=== PATIENT | female | born 1960 | race Caucasian/White ===

== ENCOUNTER → 2017-03-14 | Day surgery (SDC) | payer BC ==
--- NOTE | 2017-03-06 10:18 | RADIOLOGY REPORT (SQ) ---
EXAM DESCRIPTION: CHEST PA/LATERAL COMPLETED DATE/TIME: 03/06/2017 10:07 am REASON FOR STUDY: PRE OP COMPARISON: None. EXAM PARAMETERS: NUMBER OF VIEWS: two views TECHNIQUE: Digital Frontal and Lateral radiographic views of the chest acquired. RADIATION DOSE: NA LIMITATIONS: none FINDINGS: LUNGS AND PLEURA: No opacities, masses or pneumothorax. No pleural effusion. MEDIASTINUM AND HILAR STRUCTURES: No masses or contour abnormalities. HEART AND VASCULAR STRUCTURES: Heart normal size. No evidence for failure. BONES: No acute findings. HARDWARE: None in the chest. OTHER: No other significant finding. IMPRESSION: NO SIGNIFICANT RADIOGRAPHIC FINDING IN THE CHEST. TECHNICAL DOCUMENTATION: JOB ID: [id number] [employer]- All Rights Reserved
[2017-03-06 10:38] LABS: ABSOLUTE BASOPHILS # (AUTO) 0.1 10^3/uL (0.0-0.2); ABSOLUTE EOSINOPHILS # (AUTO) 0.3 10^3/uL (0.0-0.6); ABSOLUTE LYMPHOCYTES (AUTO) 2.2 10^3/uL (0.5-4.7); ABSOLUTE MONOCYTES (AUTO) 0.5 10^3/uL (0.1-1.4); ABSOLUTE NEUT (AUTO) 4.7 10^3/uL (1.7-8.2); BASOPHILS % (AUTO) 0.7 % (0-2); EOSINOPHILS % (AUTO) 3.8 % (0-6); HEMATOCRIT 37.7 % (36.0-47.0); HEMOGLOBIN 12.9 g/dL (12.0-15.5); LYMPHOCYTES % (AUTO) 28.1 % (13-45); MEAN CORPUSCULAR HEMOGLOBIN 30.8 pg (27.0-33.4); MEAN CORPUSCULAR HGB CONC 34.2 g/dL (32.0-36.0); MEAN CORPUSCULAR VOLUME 90 fl (80-97); MONOCYTES % (AUTO) 7.1 % (3-13); RED BLOOD COUNT 4.18 10^6/uL (3.72-5.28); RED CELL DISTRIBUTION WIDTH 12.8 % (11.5-14.0); SEGMENTED NEUTROPHILS % (AUTO) 60.3 % (42-78); WHITE BLOOD COUNT 7.8 10^3/uL (4.0-10.5)
[2017-03-06 10:42] LABS: APPEARANCE,URINE CLEAR; BILIRUBIN,URINE NEGATIVE (NEGATIVE); GLUCOSE, URINE NEGATIVE (NEGATIVE); KETONES,URINE NEGATIVE (NEGATIVE); LEUKOCYTE ESTERASE,URINE NEGATIVE (NEGATIVE); NITRITE,URINE NEGATIVE (NEGATIVE); PROTEIN,URINE NEGATIVE (NEGATIVE); URINE SPECIFIC GRAVITY 1.012
[2017-03-06 10:58] LABS: ANION GAP 15 (5-19); BLOOD UREA NITROGEN 11 mg/dL (7-20); CALCIUM 9.7 mg/dL (8.4-10.2); CARBON DIOXIDE 25 mmol/L (22-30); CHLORIDE 100 mmol/L (98-107); CREATININE RESULT 0.52 mg/dL (0.52-1.25); GLUCOSE 147 mg/dL (75-110); POTASSIUM 4.2 mmol/L (3.6-5.0); SODIUM 140.2 mmol/L (137-145)
--- NOTE | 2017-03-06 12:52 | EKG REPORT ---
SEVERITY:- NORMAL ECG - SINUS RHYTHM : Confirmed by: Celia Alvarez MD 06-Mar-2017 12:52:22
[~2017-03-14] MED LIST: CEFAZOLIN SODIUM 2 GM in DEXTROSE 5%-WATER 100 ML IV PRN; LACTATED RINGERS 1000 ML IV PRN; LIDOCAINE 0.5% INJ-PF (5 MG/ML) 50 ML SDV SUBCUT PRN
[2017-03-14 08:52] VITALS: BP 115/66
== END ==
LOC: OROUT 07:57
PROVIDERS: ATTEND Orthopaedic Surgery
DX: Z01.818 Encounter for other preprocedural examination (principal)
CPT/HCPCS: 36415; 71020; 80048; 81001; 82962; 84132; 85025; 93005; 93010; J0690

== ENCOUNTER 2017-04-04 08:09 | Day surgery (SDC) | payer BC ==
[~2017-04-04 08:09] MED LIST changes: +CEFAZOLIN 2 GM/D5W RTU 2 GM/50 ML RTUPB IV PRN; -CEFAZOLIN SODIUM 2 GM in DEXTROSE 5%-WATER 100 ML IV PRN
[2017-04-04] MEDS ORDERED: LIDOCAINE 2% INJ-PF (20 MG/ML) 10 ML AMPUL ONE (08:55)
[2017-04-04] MEDS ORDERED: ONDANSETRON HCL INJ/PF 4 MG/2 ML SDV ONE (08:55)
[2017-04-04] MEDS ORDERED: NEOSTIGMINE METHYLSULFATE 10 MG/10 ML VIAL ONE (08:55)
[2017-04-04] MEDS ORDERED: GLYCOPYRROLATE INJ 0.4 MG/2 ML VIAL ONE (08:55)
[2017-04-04] MEDS ORDERED: SUCCINYLCHOLINE CHLORIDE INJ 200 MG/10 ML VIAL ONE (08:55)
[2017-04-04] MEDS ORDERED: KETOROLAC TROMETHAMINE 60 MG/2 ML SDV ONE (08:55)
[2017-04-04] MEDS ORDERED: DEXAMETHASONE SOD PHOSPHATE INJ 4 MG/1 ML VIAL ONE (08:55)
[2017-04-04] MEDS ORDERED: METOCLOPRAMIDE HCL INJ/PF 10 MG/2 ML SDV ONE (09:34)
[2017-04-04] MEDS ORDERED: FAMOTIDINE INJ/PF 20 MG/2 ML SDV IV ONE (09:34)
[2017-04-04] MEDS ORDERED: MIDAZOLAM 2 MG/2 ML INJ ONE (10:20)
[2017-04-04] MEDS ORDERED: FENTANYL CITRATE INJ/PF 250 MCG/5 ML AMPULE ONE (10:20)
[2017-04-04] MEDS ORDERED: PROPOFOL INJ 200 MG/20 ML VIAL IV ONE (10:21)
[2017-04-04] MEDS ORDERED: ACETAMINOPHEN 100 ML IV ONE (10:21)
[2017-04-04] MEDS ORDERED: PROMETHAZINE HCL INJ 25 MG/1 ML VIAL IV PRN ×2 (11:03)
[2017-04-04] MEDS ORDERED: MORPHINE SULFATE 10 MG/ML INJ IV PRN (11:03)
[2017-04-04] MEDS ORDERED: OXYCODONE-ACETAMINOPHEN 5-325 MG TABLET PO PRN ×2 (11:03)
[2017-04-04] MEDS ORDERED: DIPHENHYDRAMINE HCL 50 MG/ML VIAL IV PRN (11:03)
[2017-04-04] MEDS ORDERED: MEPERIDINE HCL/PF INJ 25 MG/1 ML DISP.SYRIN IV PRN (11:03)
[2017-04-04] MEDS ORDERED: FENTANYL CITRATE INJ/PF 100 MCG/2 ML AMPUL IV PRN ×3 (11:03)
--- NOTE | 2017-04-04 12:37 | Operative Report ---
Operative Report DATE OF SURGERY: 04/04/17 PREOPERATIVE DIAGNOSIS: Right ankle arthrosis OPERATION: Right pantalar arthrodesis SURGEON: JUAN CARLOS NG [facility]ST AC[facility] HOSPITALIST: RONALD LOOMIS COMPLICATIONS: Broken drill ESTIMATED BLOOD LOSS: 100 PROCEDURE: Implants used: [place] 10 x 150 mm pantalar fusion nail With the patient supine position on table the right lower extremities prepped and draped in sterile fashion. Limb was elevated for exsanguination tourniquet inflated to 280 torr. A longitudinal incision made over the distal fibula. Distal fibular osteotomies performed in the distal fibula was excised. The underlying tibiotalar joint is examined. Using a TPS saw the articular surface of both the talus and the distal tibia are removed to reveal underlying cancellus bone in a fashion such that it is a parallel cut and it restores the foot to a plantigrade position both in terms of valgus varus as well as in terms of dorsiflexion and plantar flexion. Next a pin is placed through the plantar surface of the foot through the calcaneus the talus and up into the tibia. Flexible reamers used to increase the size of the opening to 11 mm. Subsequently a 10 x 150 mm [place] titanium pantalar fusion nail was advanced over the guide christine to appropriate depth. Interlock is placed in the talus followed by 2 interlocks more proximally in the tibia. A compression was then performed across the tibiotalar joint. A lateral calcaneal screw was now placed uneventfully. Lastly and attempts to place a posterior to anterior calcaneus screw through the nail initially seemed to go well but post replacement fluoroscopy suggested that the interlock was not through the nail. This screw was removed and it is an attempt is now made to redrill the opening but during the process of redrilling this the drill breaks. At this point it is my clinical judgment that to retrieve a broken drill with cause much more damage than leaving the broken drill bit in place and incision is made to do the latter. The tourniquet was deflated. Hemostasis obtained. Wounds irrigated with normal saline. The closure was interrupted Vicryl followed by surya. A sterile compressive dressing posterior plaster splint were applied and the patient's return to the PACU in satisfactory
[2017-04-04] MEDS: FENTANYL CITRATE INJ/PF 100 MCG/2 ML AMPUL ONE ×2 (12:45→12:50)
[2017-04-04] MEDS: HYDROMORPHONE HCL INJ/PF 2 MG/ML AMPULE ONE ×2 (12:55→13:16)
[2017-04-04] MEDS ORDERED: IBUPROFEN INJ 800 MG/8 ML VIAL IV ONE (13:00)
[2017-04-04] MEDS ORDERED: LORAZEPAM INJ 2 MG/1 ML VIAL ONE (13:22)
[2017-04-04] MEDS ORDERED: ONDANSETRON 4 MG TAB.RAPDIS PO PRN (14:39)
[2017-04-04] MEDS: OXYCODONE HCL IR 5 MG TABLET PO PRN ×2 (14:49→21:08)
--- NOTE | 2017-04-04 16:07 | RADIOLOGY REPORT (SQ) ---
EXAM DESCRIPTION: NO CHG FLUORO; ANKLE RIGHT COMPLETE COMPLETED DATE/TIME: 04/04/2017 3:27 pm REASON FOR STUDY: RT ANKLE FUSION ASSISTED WITH FLUORO IN OR M19.079 PRIMARY OSTEOARTHRITIS, UNSPEC IFIED ANKLE AND FOOT COMPARISON: None. FLUOROSCOPY TIME: 1.0 minutes 9 images saved to PACS. TECHNIQUE: Intra-operative images acquired during surgical procedure to evaluate progress. NUMBER OF IMAGES: 9 LIMITATIONS: None. FINDINGS: Intramedullary christine distal tibia with locking screws, distal tip of christine overlying hindfoot. Osteotomy distal fibula. IMPRESSION: IMAGE(S) OBTAINED DURING PROCEDURE. COMMENT: Quality ID [id number]: Final reports for procedures using fluoroscopy that document radiation exp osure indices, or exposure time and number of fluorographic images (if radiation exposure indices are not available) Please consult full operative report of the attending physician for description of the procedure. TECHNICAL DOCUMENTATION: JOB ID: [id number] [employer]- All Rights Reserved
[2017-04-04] MEDS: LORAZEPAM INJ 2 MG/1 ML VIAL IV PRN ×2 (16:08→22:24)
[2017-04-04] MEDS ORDERED: (PENDING PHARMACY ID) (Metformin Hcl [Glucophage Xr 500 Mg Tablet] 500 MG) PO SCH (18:00)
[2017-04-04] MEDS: METFORMIN HCL 500 MG TABLET PO SCH (18:57)
[2017-04-04] MEDS ORDERED: INSULIN GLARGINE,HUM.REC.ANLOG 300 UNIT/3 ML INSULN.PEN SUBCUT SCH (22:00)
[2017-04-04] MEDS ORDERED: ATORVASTATIN CALCIUM 20 MG TABLET PO SCH (22:00)
[2017-04-04] MEDS ORDERED: OXYCODONE HCL SR 10 MG TABLET PO SCH (22:00)
[2017-04-05] MEDS: OXYCODONE HCL IR 5 MG TABLET PO PRN (03:45)
--- NOTE | 2017-04-05 06:36 | PDOC DISCHARGE SUMMARY ---
General - Admit/Disc Date/PCP Admission Date/Primary Care Provider: DELMIS ISBELL MD Discharge Date: 04/05/17 - Discharge Diagnosis (1) Arthritis of right ankle Is this a current diagnosis for this admission?: Yes - Additional Information Discharge Diet: As Tolerated, Regular Discharge Activity: Balance Activity w/Rest, No Driving, No tub bath Home Medications: Atorvastatin Calcium [Lipitor 20 mg Tablet] 20 mg PO QHS 04/04/17 Chlorothiazide [Chlorothiazide 500 mg Tablet] 500 mg PO DAILY 04/04/17 Ezetimibe [Zetia 10 mg Tablet] 10 mg PO DAILY 04/04/17 Insulin Glargine,Hum.rec.anlog [Lantus Solostar] 25 units SQ QHS 04/04/17 Levothyroxine Sodium [Synthroid 0.075 mg Tablet] 0.075 mg PO [id number] 04/04/17 Lisinopril [Prinivil] 20 mg PO DAILY 04/04/17 Metformin HCl [Glucophage XR 500 mg Tablet] 500 mg PO BID 04/04/17 Paroxetine HCl [Paroxetine ER] 50 mg PO DAILY 04/04/17 History of Present Illness History of Present Illness: FLACO JARA is a 57 year old female with progressive right ankle pain and functional disability. She is admitted for an elective right ankle arthrodesis. Hospital Course Hospital Course: Patient was taken to the operating room and undergoes uncomplicated right ankle arthrodesis. She is returned to the floor on a 23 hour outpatient observation basis for pain control. Pain is controlled with oral analgesics. She makes limited progress with physical therapy. She subsequently for discharge home on a touchdown weightbearing restriction on the right lower extremity. Physical Exam Vital Signs: Temp Pulse Resp BP Pulse Ox 36.8 C 98 14 127/68 H 94 04/05/17 00:00 04/05/17 00:00 04/05/17 00:00 04/05/17 00:00 04/05/17 00:00 Intake & Output 04/03/17 04/04/17 04/05/17 06:59 06:59 06:59 Intake Total 1970 Output Total 1939 Balance 30 Weight 84 kg 83.91 kg General appearance: PRESENT: mild distress Head exam: PRESENT: normocephalic Eye exam: PRESENT: EOMI Respiratory exam: PRESENT: unlabored Cardiovascular exam: PRESENT: RRR Pulses: PRESENT: +1 pedal pulses bilateral Vascular exam: PRESENT: normal capillary refill GI/Abdominal exam: PRESENT: soft Rectal exam: PRESENT: deferred Extremities exam: PRESENT: other - Right lower extremities immobilized in a posterior splint. Distal neurovascular examination is intact. Neurological exam: PRESENT: alert, awake, oriented to person, oriented to place , oriented to time, oriented to situation. ABSENT: motor sensory deficit Psychiatric exam: PRESENT: appropriate affect, normal mood. ABSENT: homicidal ideation, suicidal ideation Skin exam: PRESENT: dry, intact, warm. ABSENT: cyanosis, rash Results Laboratory Results: 04/04/17 08:24 04/04/17 08:24 Potassium 3.5 L Impressions: Ankle X-Ray 04/04/17 00:00 IMPRESSION: IMAGE(S) OBTAINED DURING PROCEDURE. Fluoroscopy 04/04/17 00:00 IMPRESSION: IMAGE(S) OBTAINED DURING PROCEDURE. Status: Imported from PACS Plan Discharge Plan: Patient to be discharged home with home health nursing, home health physical therapy, wheeled walker, bedside commode. Follow-up will be with Dr. Torrez and [facility] for surgery in 2 weeks for staple removal.
[2017-04-05] MEDS: LORAZEPAM INJ 2 MG/1 ML VIAL IV PRN (07:48)
[2017-04-05] MEDS: METFORMIN HCL 500 MG TABLET PO SCH (07:48)
[2017-04-05 07:59] VITALS: BP 152/78
[2017-04-05] MEDS ORDERED: LEVOTHYROXINE SODIUM 0.075 MG TABLET PO SCH (08:00)
[2017-04-05] MEDS ORDERED: PAROXETINE HCL 25 MG TAB.SR.24H PO SCH (10:00)
[2017-04-05] MEDS ORDERED: CHLOROTHIAZIDE 500 MG PO SCH (10:00)
[2017-04-05] MEDS ORDERED: EZETIMIBE 10 MG TABLET PO SCH (10:00)
[2017-04-05] MEDS ORDERED: LISINOPRIL 10 MG TABLET PO SCH (10:00)
[2017-04-05] MEDS ORDERED: (PENDING PHARMACY ID) (Lisinopril [Prinivil] 20 MG) PO SCH (10:00)
== END 2017-04-05 09:20 | disposition home health service (06) ==
LOC: OROUT 08:09 → 4S 08:09 → INOR 12:49 → OROUT 04-05 09:20
PROVIDERS: ATTEND Orthopaedic Surgery
PROC: 0SGF0ZZ (ICD-10-PCS; principal; 2017-04-04 10:15)
DX: M19.071 Primary osteoarthritis, right ankle and foot (principal); E11.9 Type 2 diabetes mellitus without complications; E07.9 Disorder of thyroid, unspecified; Z79.899 Other long term (current) drug therapy; Z79.4 Long term (current) use of insulin; Z79.84 Long term (current) use of oral hypoglycemic drugs; Z87.891 Personal history of nicotine dependence
CPT/HCPCS: 36415; 82962; 84132; 73610; 97163; 28705; C1713; J2250; J1100; J1885; J3010 ×2; J1815; J2765; J1170; J2060 ×2; J0330; J2405; J2704; S0028; J3490; J0690; J0131; J1741; 01480

== ENCOUNTER → 2018-04-05 | Outpatient (CLI) | payer BC ==
--- NOTE | 2018-04-05 13:44 | RADIOLOGY REPORT (SQ) ---
EXAM DESCRIPTION: CT ABD/PELVIS WITH IV ONLY COMPLETED DATE/TIME: 04/05/2018 1:10 pm REASON FOR STUDY: N95.0 POSTMENOPAUSAL BLEEDING N95.0 POSTMENOPAUSAL BLEEDING COMPARISON: 11/10/2015 TECHNIQUE: CT scan of the abdomen and pelvis performed using helical scanning technique with dynamic intravenous contrast injection. No oral contrast. Images reviewed with lung, soft tissue, and bone windows. Reconstructed coronal and sagittal MPR images reviewed. Delayed images for evaluation of the urinary system also acquired. All images stored on PACS. All CT scanners at this facility use dose modulation, iterative reconstruction, and/or weight based d osing when appropriate to reduce radiation dose to as low as reasonably achievable (ALARA). [facility]: Dose Right [facility]: CareDose [facility]: Dose Right [facility]: Teradose 4D [facility]: Bi02 Medical CONTRAST TYPE AND DOSE: contrast/concentration: Isovue 350.00 mg/ml; Total Contrast Delivered: 91.0 ml; Total Saline Delivered: 70.0 ml RENAL FUNCTION: Creatinine 0.5 RADIATION DOSE: CT Rad equipment meets quality standard of care and radiation dose reduction techniq ues were employed. CTDIvol: 11.9 - 13.6 mGy. DLP: 1362 mGy-cm.. LIMITATIONS: None. FINDINGS: LOWER CHEST: No significant findings. No nodules or infiltrates. LIVER: Steatosis. No solid mass. SPLEEN: Normal size. No focal lesions. PANCREAS: No masses. No significant calcifications. No adjacent inflammation or peripancreatic fluid collections. Pancreatic duct not dilated. GALLBLADDER: Surgically absent. ADRENAL GLANDS: No significant masses or asymmetry. RIGHT KIDNEY AND URETER: No solid masses. No significant calcifications. No hydronephrosis or hyd roureter. LEFT KIDNEY AND URETER: No solid masses. No significant calcifications. No hydronephrosis or hydr oureter. AORTA AND VESSELS: No aneurysm. No dissection. Renal arteries, SMA, celiac without stenosis. RETROPERITONEUM: 1.2 cm aortocaval node, stable. No bulky adenopathy. BOWEL AND PERITONEAL CAVITY: Diverticulosis. No masses or inflammatory changes. No free fluid or per itoneal masses. APPENDIX: Normal. PELVIS: No mass. No free fluid. Normal bladder. ABDOMINAL WALL: No masses. No hernias. BONES: Prior lower lumbar fusion. OTHER: No other significant finding. IMPRESSION: No acute findings. Sigmoid diverticulosis without evidence of diverticulitis. TECHNICAL DOCUMENTATION: JOB ID: [id number] Quality ID # [id number]: Final reports with documentation of one or more dose reduction techniques (e.g., Au tomated exposure control, adjustment of the mA and/or kV according to patient size, use of iterative reconstruction technique) 2010 [employer]- All Rights Reserved Reading location - IP/workstation name: [email or web address]
== END ==
LOC: RAD 12:55
PROVIDERS: ATTEND Obstetrics & Gynecology
DX: N95.0 Postmenopausal bleeding (principal)
CPT/HCPCS: 74177; 82565

== ENCOUNTER 2018-10-05 06:02 | Inpatient (IN) | payer BC ==
[2018-10-05] MEDS ORDERED: PROPOFOL 1,000 MG/100 ML INFUS..BTL IV ONE ×2 (06:13→19:45)
[2018-10-05] MEDS ORDERED: TRANEXAMIC ACID INJ/PF 1,000 MG/10 ML SDV IV ONE ×2 (06:14→06:20)
[2018-10-05] MEDS ORDERED: NORMAL SALINE 1000 ML 1,000 ML IV ONE ×2 (06:15→10:48)
[2018-10-05] MEDS: PROPOFOL 1,000 MG/100 ML INFUS..BTL IV PRN ×3 (06:17→20:00)
[2018-10-05] MEDS ORDERED: MIDAZOLAM 2 MG/2 ML INJ IM ONE (06:21)
[2018-10-05] MEDS ORDERED: MIDAZOLAM 2 MG/2 ML INJ ONE (06:22)
[2018-10-05] MEDS ORDERED: NORMAL SALINE 250 ML IV PRN (06:27)
[2018-10-05 06:46] LABS: HEMATOCRIT 44.8 % (36.0-47.0); MEAN CORPUSCULAR HGB CONC 33.5 g/dL (32.0-36.0); MEAN CORPUSCULAR VOLUME 99 fl (80-97); PLATELET COUNT 275 10^3/uL (150-450); RED BLOOD COUNT 4.55 10^6/uL (3.72-5.28); RED CELL DISTRIBUTION WIDTH 14.1 % (11.5-14.0)
[2018-10-05] MEDS ORDERED: FENTANYL CITRATE INJ/PF 100 MCG/2 ML AMPUL IV ONE ×2 (06:48→07:57)
[2018-10-05] MEDS ORDERED: FENTANYL CITRATE INJ/PF 100 MCG/2 ML AMPUL ONE (06:48)
--- NOTE | 2018-10-05 06:50 | RADIOLOGY REPORT (SQ) ---
EXAM DESCRIPTION: X-ray single view chest. CLINICAL HISTORY: 58 years Female, Post intubation COMPARISON: None. TECHNIQUE: Single portable view of the chest performed on 10/05/2018 at 6:22 AM FINDINGS: The lungs are well expanded. There is moderate diffuse bilateral airspace disease worse in the right lung. The lateral costophrenic sulci are grossly clear. There is no evidence of a pneumothorax. The cardiac silhouette is normal in size and configuration. The mediastinal contours are normal. No acute osseous abnormality is identified. No focal soft tissue abnormalities are seen. Lines and tubes: An endotracheal tube is present which terminates at the level of the clavicular heads. IMPRESSION: 1. Moderate diffuse bilateral airspace disease slightly greater in the right lung. Possible etiologies include pulmonary edema, ARDS, alveolar hemorrhage or multifocal bilateral pneumonia. 2. Endotracheal tube terminates at the level of the clavicular heads.
[2018-10-05 06:53] LABS: ALANINE AMINOTRANSFERASE 47 U/L (9-52); ALBUMIN 4.9 g/dL (3.5-5.0); ALKALINE PHOSPHATASE 260 U/L (38-126); ASPARTATE AMINO TRANSFERASE 102 U/L (14-36); BILIRUBIN,DIRECT 0.9 mg/dL (0.0-0.4); BILIRUBIN,TOTAL 2.3 mg/dL (0.2-1.3); BLOOD UREA NITROGEN 6 mg/dL (7-20); CALCIUM 9.7 mg/dL (8.4-10.2); CREATINE KINASE 70 U/L (30-135); GLUCOSE 241 mg/dL (75-110); POTASSIUM 3.4 mmol/L (3.6-5.0)
[2018-10-05 06:58] LABS: FIBRINOGEN 500 mg/dL (209-497); INTERNATIONAL RATION (INR) 1.17; PARTIAL THROMBOPLASTIN TIME 28.8 SEC (23.5-35.8); PROTHROMBIN TIME 15.5 SEC (11.4-15.4)
[2018-10-05 06:59] LABS: CARBON DIOXIDE 24 mmol/L (22-30); CHLORIDE 98 mmol/L (98-107); SODIUM 144.7 mmol/L (137-145)
[2018-10-05] MEDS ORDERED: MIDAZOLAM 2 MG/2 ML INJ IV ONE (06:59)
[2018-10-05 07:02] LABS: ANION GAP 23 (5-19)
[2018-10-05 07:04] LABS: ABSOLUTE LYMPHOCYTES# (MANUAL) 11.2 10^3/uL (0.5-4.7); ABSOLUTE MONOCYTES # (MANUAL) 1.3 10^3/uL (0.1-1.4); BASOPHILS % (MANUAL) 0 % (0-2); EOSINOPHILS % (MANUAL) 2 % (0-6); LYMPHOCYTES % (MANUAL) 51 % (13-45); MONOCYTES % (MANUAL) 6 % (3-13); PLATELET COMMENT ADEQUATE; RBC MORPHOLOGY COMMENT NORMO-CYTIC/CHROMIC; SEGMENTED NEUTROPHILS % (MAN) 41 % (42-78); TOTAL CELLS COUNTED 100
[2018-10-05] MEDS ORDERED: KETAMINE HCL INJ 500 MG/10 ML VIAL ONE (07:18)
[2018-10-05] MEDS ORDERED: KETAMINE HCL INJ 500 MG/10 ML VIAL IV ONE ×2 (07:18→09:42)
--- NOTE | 2018-10-05 08:24 | EKG REPORT ---
SEVERITY:- ABNORMAL ECG - SINUS TACHYCARDIA QT PROLONGATION : Confirmed by: Pato Crabtree MD 05-Oct-2018 08:23:26
[2018-10-05 09:00] LABS: ABSOLUTE LYMPHOCYTES (AUTO) 1.1 10^3/uL (0.5-4.7); ABSOLUTE MONOCYTES (AUTO) 1.9 10^3/uL (0.1-1.4); ABSOLUTE NEUT (AUTO) 15.2 10^3/uL (1.7-8.2); BASOPHILS % (AUTO) 0.2 % (0-2); EOSINOPHILS % (AUTO) 0.3 % (0-6); HEMATOCRIT 39.6 % (36.0-47.0); HEMOGLOBIN 13.3 g/dL (12.0-15.5); LYMPHOCYTES % (AUTO) 5.8 % (13-45); MEAN CORPUSCULAR HEMOGLOBIN 32.6 pg (27.0-33.4); MEAN CORPUSCULAR HGB CONC 33.5 g/dL (32.0-36.0); MEAN CORPUSCULAR VOLUME 97 fl (80-97); MONOCYTES % (AUTO) 10.2 % (3-13); PLATELET COUNT 253 10^3/uL (150-450); RED BLOOD COUNT 4.08 10^6/uL (3.72-5.28); RED CELL DISTRIBUTION WIDTH 13.6 % (11.5-14.0); SEGMENTED NEUTROPHILS % (AUTO) 83.5 % (42-78); TOTAL CELLS COUNTED % (AUTO) 100 %; WHITE BLOOD COUNT 18.2 10^3/uL (4.0-10.5)
[2018-10-05] MEDS: FENTANYL CITRATE INJ/PF 100 MCG/2 ML AMPUL IV PRN ×6 (09:30→20:12)
[2018-10-05] MEDS ORDERED: METHYLPREDNISOLONE INJ 125 MG/2 ML SDV IV ONE ×2 (09:39→19:00)
--- NOTE | 2018-10-05 10:25 | RADIOLOGY REPORT (SQ) ---
EXAM DESCRIPTION: CHEST SINGLE VIEW COMPLETED DATE/TIME: 10/05/2018 10:13 am REASON FOR STUDY: Hypoxic after bucking the tube. COMPARISON: Earlier the same day NUMBER OF VIEWS: One view. TECHNIQUE: Single frontal radiographic image of the chest acquired. LIMITATIONS: None. FINDINGS: LUNGS AND PLEURA: Diffuse bilateral airspace disease not significantly changed. No pneumo thorax. MEDIASTINUM AND HEART: Stable heart size and mediastinal structures. SUPPORT DEVICES: Endotracheal tube tip between thoracic inlet and michael. BONY STRUCTURES: No acute findings. HARDWARE: None. OTHER: No other significant finding. IMPRESSION: STABLE APPEARANCE OF THE CHEST. SUPPORT DEVICES UNCHANGED. Reading location - IP/workstation name: [email or web address]
[2018-10-05 10:57] LABS: APPEARANCE,URINE CLEAR; BILIRUBIN,URINE NEGATIVE (NEGATIVE); COLOR,URINE YELLOW; GLUCOSE, URINE >=500 mg/dL (NEGATIVE); KETONES,URINE TRACE mg/dL (NEGATIVE); LEUKOCYTE ESTERASE,URINE NEGATIVE (NEGATIVE); NITRITE,URINE NEGATIVE (NEGATIVE); PROTEIN,URINE 30 mg/dL (NEGATIVE); URINE SPECIFIC GRAVITY 1.008; UROBILINOGEN,URINE NEGATIVE mg/dL (<2.0)
[2018-10-05] MEDS ORDERED: ONDANSETRON HCL INJ/PF 4 MG/2 ML SDV IV PRN (12:00)
[2018-10-05] MEDS ORDERED: HYDRALAZINE HCL INJ/PF 20 MG/1 ML SDV IV PRN (12:14)
[2018-10-05] MEDS ORDERED: DEXTROSE 50%-WATER 25 GM/50 ML DISP.SYRIN IV PRN ×2 (12:16)
[2018-10-05] MEDS ORDERED: DEXTROSE 40% GEL 15 GM TUBE PO PRN ×2 (12:16)
[2018-10-05] MEDS ORDERED: GLUCAGON,HUMAN RECOMB 1 MG INJ IM PRN (12:16)
[2018-10-05] MEDS: LORAZEPAM INJ 2 MG/1 ML VIAL IV PRN ×2 (13:45→16:23)
[2018-10-05] MEDS: INSULIN REG, HUMAN 100 UNIT/ML 3 ML VIAL (PYX) SUBCUT SCH ×2 (13:46→17:53)
[2018-10-05] MEDS ORDERED: MIDAZOLAM 2 MG/2 ML INJ IV PRN (14:39)
[2018-10-05] MEDS ORDERED: MIDAZOLAM HCL 50 MG/100 ML RTUINJ ONE (15:09)
[2018-10-05] MEDS: MIDAZOLAM HCL 50 MG/100 ML RTUINJ IV PRN ×2 (15:10→20:15)
--- NOTE | 2018-10-05 16:16 | PDOC H&P ---
History of Present Illness Admission Date/PCP: 10/05/18 12:05 DIXIE BERRY MD Patient complains of: respiratory distress History of Present Illness: FLACO JARA is a 58 year old female with history of depression, HTN, and alcohol abuse, who presents to the ED with lip and tongue swelling in addition to difficulty breathing. History was obtained from patient's (ex?) who brought her to the ED. Pre report, he saw her yesterday evening and was in good health. He received a call around 2AM this morning and noted that she was having trouble talking due to facial swelling which started a few hours ago. He went over to her house to check up on. Patient initially refused to come to the ED and took Benadryl. Around 6AM, patient's breathing became much worse and she was brought to the ED, where she rapidly deteriorated on arrival. Due to distress and turning blue, she was intubated nasotracheally with a 6.0 endotracheal tube. Per ED physician, she went into an asystolic arrest with no pulse. Chest compressions were started and NET was placed. It was noted that she had dark bloody discharge on suction. ROSC was acheived Propofol drip was started to sedate her. Of note, patient noted similar facial swelling and difficultly breathing 2-3 months ago. She took Benadryl, with improvement. She never reported this episode to her PCP. She was Lisinopril at that times and has continued to take lisinopril. At time of my evaluation in the ED, patient was clinically better. She required less sedation and was answering some commands. Admitted to hospitalist service to the MICU. Past Medical History Cardiac Medical History: Reports: Hypertension Denies: Coronary Artery Disease, Myocardial Infarction Pulmonary Medical History: Reports: Bronchitis Denies: Asthma, Chronic Obstructive Pulmonary Disease (COPD), Pneumonia Neurological Medical History: Denies: Seizures Endocrine Medical History: Reports: Diabetes Mellitus Type 1, Diabetes Mellitus Type 2 Musculoskeltal Medical History: Reports: Arthritis - R FOOT Psychiatric Medical History: Reports: Alcohol Dependency, Depression Hematology: Reports: Anemia - TEENAGER Past Surgical History Past Surgical History: Reports: Cholecystectomy, Orthopedic Surgery - right foot for cerebral palsy, low back spinal fusion Social History Information Source: Relative - Lives with: Alone Smoking Status: Former Smoker Frequency of Alcohol Use: Heavy Hx Recreational Drug Use: No Drugs: None Hx Prescription Drug Abuse: No Family History Family History: Reviewed & Not Pertinent Parental Family History Reviewed: No Children Family History Reviewed: NA Sibling(s) Family History Reviewed.: NA Medication/Allergy Home Medications: Atorvastatin Calcium [Lipitor 20 mg Tablet] 20 mg PO QHS 10/05/18 Dextroamphetamine/Amphetamine [Adderall XR 20 mg Capsule] 20 mg PO DAILY 10/05/18 Insulin Glargine,Hum.rec.anlog [Lantus Insulin 100 Unit/mL] 35 units SQ DAILY 10/05/18 Levothyroxine Sodium 75 mcg PO Q6AM 10/05/18 Lisinopril [Zestril] 20 mg PO DAILY 10/05/18 Paroxetine HCl [Paxil Cr 25 mg Tab.sr] 50 mg PO DAILY 10/05/18 Allergies/Adverse Reactions: lisinopril Adverse Reaction (Severe, Verified 10/05/18 08:37) Angioneurotic Edema Hair Dye Allergy (Uncoded 03/14/17 08:37) Review of Systems ROS unobtainable: Due to endotracheal tube - ROS per spouse who was with patient Physical Exam Vital Signs: Temp Pulse Resp BP Pulse Ox 98.8 F 95 23 H 128/102 H 100 10/05/18 14:29 10/05/18 14:41 10/05/18 14:29 10/05/18 14:29 10/05/18 15:14 Intake & Output 10/04/18 10/05/18 10/06/18 06:59 06:59 06:59 Intake Total 6 2811 Output Total 800 Balance 6 2010 Weight 91 kg 86.5 kg General appearance: PRESENT: mild distress - due to nasoendotracheal tube and restraints, well-developed, well-nourished Mouth exam: PRESENT: dry mucosa, other - Mild bleeding noted from naso-ET tube Respiratory exam: PRESENT: rhonchi, unlabored Cardiovascular exam: PRESENT: +S1, +S2. ABSENT: tachycardia GI/Abdominal exam: PRESENT: organolmegaly - RUQ fullness noted, soft. ABSENT: tenderness Extremities exam: PRESENT: other - Left toe ulcer noted on bottom, non draining Neurological exam: PRESENT: awake, other - Unable to do full neuro exam due to sedation Psychiatric exam: PRESENT: anxious Skin exam: PRESENT: dry, intact, other - LE chronic venous stasis noted bilaterally Results Laboratory Results: 10/05/18 08:35 10/05/18 06:10 10/05/18 10/05/18 10/05/18 06:10 06:10 06:10 WBC 22.0 H RBC 4.55 Hgb 15.0 Hct 44.8 MCV 99 H MCH 33.0 MCHC 33.5 RDW 14.1 H Plt Count 275 Seg Neutrophils % Not Reportable Lymphocytes % Not Reportable Monocytes % Not Reportable Eosinophils % Not Reportable Basophils % Not Reportable Absolute Neutrophils Not Reportable Absolute Lymphocytes Not Reportable Absolute Monocytes Not Reportable Absolute Eosinophils Not Reportable Absolute Basophils Not Reportable Sodium 144.7 Potassium 3.4 L Chloride 98 Carbon Dioxide 24 Anion Gap 23 H BUN 6 L Creatinine 0.56 Est GFR ( Amer) > 60 Est GFR (Non-Af Amer) > 60 Glucose 241 H Lactic Acid Calcium 9.7 Total Bilirubin 2.3 H AST 102 H ALT 47 Alkaline Phosphatase 260 H Total Protein 9.0 H Albumin 4.9 Urine Color Urine Appearance Urine pH Ur Specific [place] Urine Protein Urine Glucose (UA) Urine Ketones Urine Blood Urine Nitrite Ur Leukocyte Esterase Urine WBC (Auto) Urine RBC (Auto) Blood Type O POSITIVE 10/05/18 10/05/18 10/05/18 06:30 08:35 10:20 WBC 18.2 H RBC 4.08 Hgb 13.3 Hct 39.6 MCV 97 MCH 32.6 MCHC 33.5 RDW 13.6 Plt Count 253 Seg Neutrophils % 83.5 H Lymphocytes % 5.8 L Monocytes % 10.2 Eosinophils % 0.3 Basophils % 0.2 Absolute Neutrophils 15.2 H Absolute Lymphocytes 1.1 Absolute Monocytes 1.9 H Absolute Eosinophils 0.0 Absolute Basophils 0.0 Sodium Potassium Chloride Carbon Dioxide Anion Gap BUN Creatinine Est GFR ( Amer) Est GFR (Non-Af Amer) Glucose Lactic Acid 10.5 H Calcium Total Bilirubin AST ALT Alkaline Phosphatase Total Protein Albumin Urine Color YELLOW Urine Appearance CLEAR Urine pH 7.0 Ur Specific [place] 1.008 Urine Protein 30 H Urine Glucose (UA) >=500 H Urine Ketones TRACE H Urine Blood SMALL H Urine Nitrite NEGATIVE Ur Leukocyte Esterase NEGATIVE Urine WBC (Auto) 3 Urine RBC (Auto) 3 Blood Type 10/05/18 11:00 WBC RBC Hgb Hct MCV MCH MCHC RDW Plt Count Seg Neutrophils % Lymphocytes % Monocytes % Eosinophils % Basophils % Absolute Neutrophils Absolute Lymphocytes Absolute Monocytes Absolute Eosinophils Absolute Basophils Sodium Potassium Chloride Carbon Dioxide Anion Gap BUN Creatinine Est GFR ( Amer) Est GFR (Non-Af Amer) Glucose Lactic Acid 1.6 Calcium Total Bilirubin AST ALT Alkaline Phosphatase Total Protein Albumin Urine Color Urine Appearance Urine pH Ur Specific [place] Urine Protein Urine Glucose (UA) Urine Ketones Urine Blood Urine Nitrite Ur Leukocyte Esterase Urine WBC (Auto) Urine RBC (Auto) Blood Type 10/05/18 10/05/18 06:10 06:10 Creatine Kinase 70 Troponin I 0.057 Impressions: Chest X-Ray 10/05/18 09:51 IMPRESSION: STABLE APPEARANCE OF THE CHEST. SUPPORT DEVICES UNCHANGED. 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 This is 2nd episode in 3 months. - Given severe distress, required nasoendotracheal intubation - TXA was given in ED after blood was noted. There is some evidence that TXA helps with severe respiratory distress/PAH in setting of angioedema - IV benadryl provided Management - Admit to MICU - Vent support for now - Versed GTT ordered - Fentanyl ordered PRN - Supportive care - IV benadryl ordered PRN - LAURA should NOT be used. Listed as allergy - ARBs should be used cautiously (2) Acute respiratory failure with hypoxia Is this a current diagnosis for this admission?: Yes Plan: Management per above - Dr. Townsend consulted, appreciate management recommendations - Respiratory following as well (3) LFT elevation Is this a current diagnosis for this admission?: Yes Plan: AST to ALT ratio 2:1, in setting of history of heavy alcohol use. Enlarged liver noted on exam - Will continue to monitor for now (4) Alcohol abuse Is this a current diagnosis for this admission?: Yes Plan: Has long standing history of alcohol use - Ordered IV ativan PRN in setting of w/d symptoms (5) Diabetes Qualifiers: Diabetes mellitus type: type 2 Diabetes mellitus usp insulin use: with usp use Is this a current diagnosis for this admission?: Yes Plan: At home is on Lantus 35U qHS - Given NPO status, will only start Lantus 10U qHS - Started LDISS with CBS checks q6 hours (6) Pulmonary alveolar hemorrhage Is this a current diagnosis for this admission?: Yes Plan: Concern for PAH given blood noted with suction - Unclear etiology, patient did receive chest compression, was hypertensive, and had respiratory distress which could all contribute - Received TXA and IV steroids in ED - Will closely monitor CBC (recheck today at 4pm and then again in AM) (7) Leukocytosis Is this a current diagnosis for this admission?: Yes Plan: LIkely from stress reaction however possibly PNA given opacities noted in CXR - WBC trending down on recheck in ED - Will NOT empirically start abx at this point; low threshold if febrile, worsening respiratory status - Time Time Spent: Greater than 70 Minutes Critical Time spent with patient: 15-24 minutes Medications reviewed and adjusted accordingly: Yes - Inpatient Certification Medical Necessity: Need Close Monitoring Due to Risk of Patient Decompensation, Risk of Complication if Not Cared For in Hospital
[2018-10-05] MEDS ORDERED: EPINEPHRINE INJ 1 MG/10 ML DISP.SYRIN ONE (16:18)
[2018-10-05 18:34] LABS: ABSOLUTE LYMPHOCYTES (AUTO) 0.6 10^3/uL (0.5-4.7); ABSOLUTE MONOCYTES (AUTO) 0.4 10^3/uL (0.1-1.4); ABSOLUTE NEUT (AUTO) 8.9 10^3/uL (1.7-8.2); BASOPHILS % (AUTO) 0.1 % (0-2); HEMATOCRIT 34.2 % (36.0-47.0); HEMOGLOBIN 11.7 g/dL (12.0-15.5); MEAN CORPUSCULAR HEMOGLOBIN 32.8 pg (27.0-33.4); MEAN CORPUSCULAR HGB CONC 34.2 g/dL (32.0-36.0); MEAN CORPUSCULAR VOLUME 96 fl (80-97); MONOCYTES % (AUTO) 3.9 % (3-13); PLATELET COUNT 163 10^3/uL (150-450); RED BLOOD COUNT 3.57 10^6/uL (3.72-5.28); RED CELL DISTRIBUTION WIDTH 13.7 % (11.5-14.0); TOTAL CELLS COUNTED % (AUTO) 100 %; WHITE BLOOD COUNT 9.9 10^3/uL (4.0-10.5)
[2018-10-05] MEDS ORDERED: POTASSI CL 20 MEQ/1/2NS 1L 20 MEQ/1,000 ML RTUINJ IV ONE (19:46)
[2018-10-05] MEDS: POTASSI CL 20 MEQ/1/2NS 1L 1000 ML IV PRN (20:06)
[2018-10-05 20:43] LABS: ARTERIAL BLOOD BASE EXCESS 2.3 mmol/L; ARTERIAL BLOOD H2CO3 1.31 mmol/L (1.05-1.35); ARTERIAL BLOOD HCO3 27.3 mmol/L (20-24); ARTERIAL BLOOD O2 SATURATION 98.2 % (94-98); ARTERIAL BLOOD PCO2 43.5 mmHg (35-45); ARTERIAL BLOOD PH 7.42 (7.35-7.45); ARTERIAL BLOOD PO2 114.2 mmHg (80-100); ARTERIAL BLOOD TOTAL CO2 28.6 mmol/L (21-25)
[2018-10-05 20:52] LABS: ARTERIAL BLOOD FIO2 50%
[2018-10-05] MEDS ORDERED: INSULIN GLARGINE,HUM.REC.ANLOG 300 UNIT/3 ML INSULN.PEN SUBCUT SCH (22:00)
[2018-10-05] MEDS: DIPHENHYDRAMINE HCL 50 MG/ML VIAL IV PRN (22:18)
[2018-10-06 00:02] LABS: HEMATOCRIT 34.4 % (36.0-47.0); HEMOGLOBIN 11.7 g/dL (12.0-15.5); MEAN CORPUSCULAR HEMOGLOBIN 32.8 pg (27.0-33.4); MEAN CORPUSCULAR VOLUME 96 fl (80-97); PLATELET COUNT 151 10^3/uL (150-450); RED BLOOD COUNT 3.57 10^6/uL (3.72-5.28); RED CELL DISTRIBUTION WIDTH 14.1 % (11.5-14.0); WHITE BLOOD COUNT 8.8 10^3/uL (4.0-10.5)
[2018-10-06] MEDS: METHYLPREDNISOLONE INJ 125 MG/2 ML SDV IV SCH ×5 (00:24→23:16)
[2018-10-06] MEDS: INSULIN REG, HUMAN 100 UNIT/ML 3 ML VIAL (PYX) SUBCUT SCH ×5 (00:24→23:16)
[2018-10-06] MEDS: FENTANYL CITRATE INJ/PF 100 MCG/2 ML AMPUL IV PRN ×9 (00:33→21:07)
[2018-10-06 04:13] LABS: ABSOLUTE LYMPHOCYTES (AUTO) 0.6 10^3/uL (0.5-4.7); ABSOLUTE MONOCYTES (AUTO) 0.4 10^3/uL (0.1-1.4); ABSOLUTE NEUT (AUTO) 8.9 10^3/uL (1.7-8.2); BASOPHILS % (AUTO) 0.1 % (0-2); HEMATOCRIT 33.6 % (36.0-47.0); HEMOGLOBIN 11.5 g/dL (12.0-15.5); LYMPHOCYTES % (AUTO) 6.3 % (13-45); MEAN CORPUSCULAR HEMOGLOBIN 32.6 pg (27.0-33.4); MEAN CORPUSCULAR HGB CONC 34.1 g/dL (32.0-36.0); MEAN CORPUSCULAR VOLUME 96 fl (80-97); MONOCYTES % (AUTO) 4.2 % (3-13); PLATELET COUNT 165 10^3/uL (150-450); RED BLOOD COUNT 3.51 10^6/uL (3.72-5.28); RED CELL DISTRIBUTION WIDTH 13.6 % (11.5-14.0); SEGMENTED NEUTROPHILS % (AUTO) 89.4 % (42-78); TOTAL CELLS COUNTED % (AUTO) 100 %
[2018-10-06] MEDS: DIPHENHYDRAMINE HCL 50 MG/ML VIAL IV PRN ×4 (04:19→23:16)
[2018-10-06] MEDS: POTASSI CL 20 MEQ/1/2NS 1L 1000 ML IV PRN ×3 (04:19→21:07)
[2018-10-06 04:21] LABS: INTERNATIONAL RATION (INR) 1.23; PROTHROMBIN TIME 16.1 SEC (11.4-15.4)
[2018-10-06 04:22] LABS: ARTERIAL BLOOD BASE EXCESS 0.3 mmol/L; ARTERIAL BLOOD H2CO3 1.13 mmol/L (1.05-1.35); ARTERIAL BLOOD HCO3 24.4 mmol/L (20-24); ARTERIAL BLOOD O2 SATURATION 96.4 % (94-98); ARTERIAL BLOOD PCO2 37.5 mmHg (35-45); ARTERIAL BLOOD PH 7.43 (7.35-7.45); ARTERIAL BLOOD PO2 82.3 mmHg (80-100); ARTERIAL BLOOD TOTAL CO2 25.5 mmol/L (21-25)
[2018-10-06 04:24] LABS: ALANINE AMINOTRANSFERASE 39 U/L (9-52); ALBUMIN 3.4 g/dL (3.5-5.0); ALKALINE PHOSPHATASE 153 U/L (38-126); ANION GAP 12 (5-19); ASPARTATE AMINO TRANSFERASE 95 U/L (14-36); BILIRUBIN,DIRECT 0.7 mg/dL (0.0-0.4); BILIRUBIN,TOTAL 1.2 mg/dL (0.2-1.3); BLOOD UREA NITROGEN 12 mg/dL (7-20); CALCIUM 8.2 mg/dL (8.4-10.2); CARBON DIOXIDE 25 mmol/L (22-30); CHLORIDE 107 mmol/L (98-107); CREATINE KINASE 755 U/L (30-135); GLUCOSE 281 mg/dL (75-110); POTASSIUM 3.7 mmol/L (3.6-5.0); SODIUM 143.9 mmol/L (137-145); TOTAL PROTEIN 6.6 g/dL (6.3-8.2)
[2018-10-06 04:25] LABS: ARTERIAL BLOOD FIO2 40%
[2018-10-06 04:35] LABS: CREATINE KINASE MB 11.3 ng/mL (<4.55)
[2018-10-06 04:37] LABS: TROPONIN I 0.172 ng/mL
[2018-10-06] MEDS: PROPOFOL 1,000 MG/100 ML INFUS..BTL IV PRN ×2 (05:26→17:56)
[2018-10-06] MEDS: LORAZEPAM INJ 2 MG/1 ML VIAL IV PRN (06:54)
[2018-10-06] MEDS: MIDAZOLAM HCL 50 MG/100 ML RTUINJ IV PRN ×2 (06:54→17:56)
--- NOTE | 2018-10-06 08:55 | RADIOLOGY REPORT (SQ) ---
EXAM DESCRIPTION: CHEST SINGLE VIEW COMPLETED DATE/TIME: 10/06/2018 6:43 am REASON FOR STUDY: r/o DA COMPARISON: 10/05/2018 NUMBER OF VIEWS: One view. TECHNIQUE: Single frontal radiographic image of the chest acquired. LIMITATIONS: None. FINDINGS: LUNGS AND PLEURA: Bilateral airspace disease with improved aeration in the left lung. No pneumothorax. MEDIASTINUM AND HEART: Stable heart size and mediastinal structures. SUPPORT DEVICES: Appropriate location without change. BONY STRUCTURES: No acute findings. HARDWARE: None. OTHER: No other significant finding. IMPRESSION: Interval improvement. No pneumothorax. Reading location - IP/workstation name: [email or web address]
[2018-10-06] MEDS: PANTOPRAZOLE SODIUM 40 MG VIAL IV SCH (10:23)
[2018-10-06] MEDS: ENOXAPARIN SODIUM INJ 40 MG/0.4 ML DISP.SYRIN SUBCUT SCH ×2 (10:23→17:37)
--- NOTE | 2018-10-06 14:57 | PDOC PROGRESS REPORT ---
Subjective Progress Note for:: 10/06/18 Subjective:: Admitted on 10/05 to the MICU for severe respiratory distress due to angioedema. Overnight was placed back on Propofol in addition to Versed due to pain and anxiety. Propofol dose lowered due to soft BPs. This AM patient's mental status is improved. Her swelling is decreased. Able to open and close mouth, stick tongue. She is more awake and interactive. Complaining of pain and wanted to drink something. NO other complaints. Reason For Visit: ANGIOEDEMA, RESPIRATORY DISTRESS Physical Exam Vital Signs: Temp Pulse Resp BP Pulse Ox 99.1 F 95 22 H 127/74 H 96 10/06/18 12:00 10/06/18 14:00 10/06/18 14:00 10/06/18 14:00 10/06/18 14:00 Intake & Output 10/05/18 10/06/18 10/07/18 06:59 06:59 06:59 Intake Total 6 4061 1080 Output Total 1600 155 Balance 6 2461 925 Weight 91 kg 83.6 kg General appearance: PRESENT: mild distress - Due to discomfort from nasoendotracheal tube Eye exam: PRESENT: EOMI Mouth exam: PRESENT: tongue midline, other - Lips and tongue much less swollen compared to 10/05 Neck exam: PRESENT: other - Swelling presents but reduced Respiratory exam: PRESENT: rhonchi, unlabored, other - On Vent. ABSENT: wheezes Cardiovascular exam: PRESENT: +S1, +S2. ABSENT: tachycardia GI/Abdominal exam: PRESENT: soft. ABSENT: tenderness Extremities exam: PRESENT: +1 edema Neurological exam: PRESENT: alert, awake, CN II-XII grossly intact Psychiatric exam: PRESENT: agitated - due to tube, anxious Skin exam: PRESENT: dry, intact Results Laboratory Results: 10/06/18 03:49 10/06/18 03:49 10/05/18 10/05/18 10/05/18 18:20 20:29 23:56 WBC 9.9 8.8 RBC 3.57 L 3.57 L Hgb 11.7 L 11.7 L Hct 34.2 L 34.4 L MCV 96 96 MCH 32.8 32.8 MCHC 34.2 34.0 RDW 13.7 14.1 H Plt Count 163 151 Seg Neutrophils % 90.0 H Lymphocytes % 6.0 L Monocytes % 3.9 Eosinophils % 0.0 Basophils % 0.1 Absolute Neutrophils 8.9 H Absolute Lymphocytes 0.6 Absolute Monocytes 0.4 Absolute Eosinophils 0.0 Absolute Basophils 0.0 Carbonic Acid 1.31 HCO3/H2CO3 Ratio 20:1 ABG pH 7.42 ABG pCO2 43.5 ABG pO2 114.2 H ABG HCO3 27.3 H ABG O2 Saturation 98.2 H ABG Base Excess 2.3 FiO2 50% Sodium Potassium Chloride Carbon Dioxide Anion Gap BUN Creatinine Est GFR ( Amer) Est GFR (Non-Af Amer) Glucose Calcium Magnesium Total Bilirubin AST ALT Alkaline Phosphatase Total Protein Albumin 10/06/18 10/06/18 10/06/18 03:49 03:49 04:00 WBC 10.0 RBC 3.51 L Hgb 11.5 L Hct 33.6 L MCV 96 MCH 32.6 MCHC 34.1 RDW 13.6 Plt Count 165 Seg Neutrophils % 89.4 H Lymphocytes % 6.3 L Monocytes % 4.2 Eosinophils % 0.0 Basophils % 0.1 Absolute Neutrophils 8.9 H Absolute Lymphocytes 0.6 Absolute Monocytes 0.4 Absolute Eosinophils 0.0 Absolute Basophils 0.0 Carbonic Acid 1.13 HCO3/H2CO3 Ratio 21:1 ABG pH 7.43 ABG pCO2 37.5 ABG pO2 82.3 ABG HCO3 24.4 H ABG O2 Saturation 96.4 ABG Base Excess 0.3 FiO2 40% Sodium 143.9 Potassium 3.7 Chloride 107 Carbon Dioxide 25 Anion Gap 12 BUN 12 Creatinine 0.45 L Est GFR ( Amer) > 60 Est GFR (Non-Af Amer) > 60 Glucose 281 H Calcium 8.2 L Magnesium 1.7 Total Bilirubin 1.2 AST 95 H ALT 39 Alkaline Phosphatase 153 H Total Protein 6.6 Albumin 3.4 L 10/05/18 10/05/18 10/06/18 06:10 06:10 03:49 Creatine Kinase 70 755 H CK-MB (CK-2) Troponin I 0.057 NT-Pro-B Natriuret Pep 10/06/18 03:49 Creatine Kinase CK-MB (CK-2) 11.30 H Troponin I 0.172 NT-Pro-B Natriuret Pep 2210 H Impressions: Chest X-Ray 10/06/18 06:00 IMPRESSION: Interval improvement. No pneumothorax. 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 This is 2nd episode in 3 months. - In ED: Given severe distress, required nasoendotracheal intubation. TXA was given in ED after blood was noted. IV benadryl provided Management - Admit to MICU - Continue vent support for one additional day despite improvement - Versed and Propofol GTT ordered; would keep on lowest settings while minimizing discomfort and anxiety - Supportive care - IV benadryl ordered PRN - LAURA should NOT be used in future. Listed as allergy. ARBs should be used cautiously (2) Acute respiratory failure with hypoxia Is this a current diagnosis for this admission?: Yes Plan: Management per above - Dr. Townsend aware of patient and saw this AM; continued recs appreciated - Respiratory following as well (3) LFT elevation Is this a current diagnosis for this admission?: Yes Plan: AST to ALT ratio 2:1, in setting of history of heavy alcohol use. Enlarged liver noted on exam - LFTs downtrending on 10/05; continue to monitor (4) Alcohol abuse Is this a current diagnosis for this admission?: Yes Plan: Has long standing history of alcohol use - Has IV ativan PRN in setting of w/d symptoms (5) Diabetes Qualifiers: Diabetes mellitus type: type 2 Diabetes mellitus ocean transportation intermediary insulin use: with ocean transportation intermediary use Is this a current diagnosis for this admission?: Yes Plan: At home is on Lantus 35U qHS - Continue NPO status - Blood sugars are elevated since admission likely due to high doses of steroids, will increase Lantus from 10U to 20U qHS - Continue LDISS with CBS checks q6 hours (6) Pulmonary alveolar hemorrhage Is this a current diagnosis for this admission?: Yes Plan: Concern for PAH given blood noted with suction. May also be from chest co mpression, was hypertensive, and had respiratory distress which could all contribute - Received TXA and IV steroids in ED - H&H have stablized and there is no evidence of active bleeding at this time - Continue IV methylprednisolone 125mg q6 hours (7) Leukocytosis Is this a current diagnosis for this admission?: Yes Plan: LIkely from stress reaction however possibly PNA given opacities noted in CXR - WBC continues to trending down; patient afebrile - No abx at this point; low threshold if febrile, worsening respiratory status - Time Time Spent with patient: 15-24 minutes Medications reviewed and adjusted accordingly: Yes Disposition: Continue ICU care, likely for 1 additional day
--- NOTE | 2018-10-06 16:30 | PDOC CONSULTATION ---
Consultation Consult Date: 10/06/18 Attending physician:: DICK SHIELDS Consult reason:: Acute respiratory failure History of Present Illness Admission Date/PCP: 10/05/18 12:05 DIXIE BERRY MD History of Present Illness: FLACO JARA is a 58 year old female, with her normal state of health until about 2 hours prior to presentation she developed facial swelling as well as swelling and shortness of breath apparently she had a episodes several weeks ago . She self medicated with Benadryl and apparentlyHowever patient noticed swelling shortness of breath and this time and the Benadryl failed to abort the episode she subsequently became progressively more short of breath by the time she arrived to the emergency room she was nasotracheally intubated and is currently in ICU intubated sedated but awake initial episode resolved. . Past Medical History Cardiac Medical History: Reports: Hypertension Denies: Coronary Artery Disease, Myocardial Infarction Pulmonary Medical History: Reports: Bronchitis Denies: Asthma, Chronic Obstructive Pulmonary Disease (COPD), Pneumonia Neurological Medical History: Denies: Seizures Endocrine Medical History: Reports: Diabetes Mellitus Type 1, Diabetes Mellitus Type 2 Musculoskeltal Medical History: Reports: Arthritis - R FOOT Psychiatric Medical History: Reports: Alcohol Dependency, Depression Hematology: Reports: Anemia - TEENAGER Past Surgical History Past Surgical History: Reports: Cholecystectomy, Orthopedic Surgery - right foot for cerebral palsy, low back spinal fusion Social History Information Source: [facility] Records Lives with: Alone Smoking Status: Former Smoker Passive smoke exposure as: Both Frequency of Alcohol Use: Heavy Hx Recreational Drug Use: No Drugs: None Hx Prescription Drug Abuse: No Family History Parental Family History Reviewed: No Children Family History Reviewed: No Sibling(s) Family History Reviewed.: No Medication/Allergy Home Medications: Atorvastatin Calcium [Lipitor 20 mg Tablet] 20 mg PO QHS 10/05/18 Dextroamphetamine/Amphetamine [Adderall XR 20 mg Capsule] 20 mg PO DAILY 10/05/18 Insulin Glargine,Hum.rec.anlog [Lantus Insulin 100 Unit/mL] 35 units SQ DAILY 10/05/18 Levothyroxine Sodium 75 mcg PO Q6AM 10/05/18 Lisinopril [Zestril] 20 mg PO DAILY 10/05/18 Paroxetine HCl [Paxil Cr 25 mg Tab.sr] 50 mg PO DAILY 10/05/18 Allergies/Adverse Reactions: lisinopril Adverse Reaction (Severe, Verified 10/05/18 08:37) Angioneurotic Edema Hair Dye Allergy (Uncoded 03/14/17 08:37) Review of Systems ROS unobtainable: Due to endotracheal tube Physical Exam Vital Signs: Temp Pulse Resp BP Pulse Ox 99.1 F 95 22 H 127/74 H 96 10/06/18 12:00 10/06/18 14:00 10/06/18 14:00 10/06/18 14:00 10/06/18 15:36 Intake & Output 10/05/18 10/06/18 10/07/18 06:59 06:59 06:59 Intake Total 6 4061 1080 Output Total 1600 155 Balance 6 2461 925 Weight 91 kg 83.6 kg General appearance: PRESENT: no acute distress, cooperative, well-developed, well-nourished Head exam: PRESENT: atraumatic, normocephalic Eye exam: PRESENT: EOMI. ABSENT: nystagmus, periorbital swelling Mouth exam: PRESENT: dry mucosa, neck supple, tongue midline, other - Nasotracheal intubated Neck exam: ABSENT: carotid bruit, full ROM, JVD, lymphadenopathy, meningismus, tenderness, thyromegaly, tracheal deviation, tracheostomy, other Respiratory exam: PRESENT: decreased breath sounds, prolonged expiratory phas, rales, retraction, rhonchi, stridor, symmetrical, unlabored Cardiovascular exam: PRESENT: RRR, +S1, +S2 Pulses: PRESENT: normal radial pulses GI/Abdominal exam: PRESENT: soft. ABSENT: tenderness Gentrourinary exam: PRESENT: indwelling catheter Extremities exam: PRESENT: clubbing. ABSENT: calf tenderness, joint swelling Musculoskeletal exam: PRESENT: deformity, dislocation Neurological exam: PRESENT: alert, awake Psychiatric exam: PRESENT: appropriate affect Skin exam: PRESENT: dry, warm Results Laboratory Results: 10/06/18 03:49 10/06/18 03:49 10/05/18 10/05/18 10/05/18 18:20 20:29 23:56 WBC 9.9 8.8 RBC 3.57 L 3.57 L Hgb 11.7 L 11.7 L Hct 34.2 L 34.4 L MCV 96 96 MCH 32.8 32.8 MCHC 34.2 34.0 RDW 13.7 14.1 H Plt Count 163 151 Seg Neutrophils % 90.0 H Lymphocytes % 6.0 L Monocytes % 3.9 Eosinophils % 0.0 Basophils % 0.1 Absolute Neutrophils 8.9 H Absolute Lymphocytes 0.6 Absolute Monocytes 0.4 Absolute Eosinophils 0.0 Absolute Basophils 0.0 Carbonic Acid 1.31 HCO3/H2CO3 Ratio 20:1 ABG pH 7.42 ABG pCO2 43.5 ABG pO2 114.2 H ABG HCO3 27.3 H ABG O2 Saturation 98.2 H ABG Base Excess 2.3 FiO2 50% Sodium Potassium Chloride Carbon Dioxide Anion Gap BUN Creatinine Est GFR ( Amer) Est GFR (Non-Af Amer) Glucose Calcium Magnesium Total Bilirubin AST ALT Alkaline Phosphatase Total Protein Albumin 10/06/18 10/06/18 10/06/18 03:49 03:49 04:00 WBC 10.0 RBC 3.51 L Hgb 11.5 L Hct 33.6 L MCV 96 MCH 32.6 MCHC 34.1 RDW 13.6 Plt Count 165 Seg Neutrophils % 89.4 H Lymphocytes % 6.3 L Monocytes % 4.2 Eosinophils % 0.0 Basophils % 0.1 Absolute Neutrophils 8.9 H Absolute Lymphocytes 0.6 Absolute Monocytes 0.4 Absolute Eosinophils 0.0 Absolute Basophils 0.0 Carbonic Acid 1.13 HCO3/H2CO3 Ratio 21:1 ABG pH 7.43 ABG pCO2 37.5 ABG pO2 82.3 ABG HCO3 24.4 H ABG O2 Saturation 96.4 ABG Base Excess 0.3 FiO2 40% Sodium 143.9 Potassium 3.7 Chloride 107 Carbon Dioxide 25 Anion Gap 12 BUN 12 Creatinine 0.45 L Est GFR ( Amer) > 60 Est GFR (Non-Af Amer) > 60 Glucose 281 H Calcium 8.2 L Magnesium 1.7 Total Bilirubin 1.2 AST 95 H ALT 39 Alkaline Phosphatase 153 H Total Protein 6.6 Albumin 3.4 L 10/05/18 10/05/18 10/06/18 06:10 06:10 03:49 Creatine Kinase 70 755 H CK-MB (CK-2) Troponin I 0.057 NT-Pro-B Natriuret Pep 10/06/18 03:49 Creatine Kinase CK-MB (CK-2) 11.30 H Troponin I 0.172 NT-Pro-B Natriuret Pep 2210 H Impressions: Chest X-Ray 10/06/18 06:00 IMPRESSION: Interval improvement. No pneumothorax. Assessment & Plan - Diagnosis (1) Acute respiratory failure with hypoxia Is this a current diagnosis for this admission?: Yes Plan: Continue current mechanical ventilation (2) Alcohol abuse Is this a current diagnosis for this admission?: Yes Plan: DT precautions (3) Angioedema due to angiotensin converting enzyme inhibitor (LAURA-I) Is this a current diagnosis for this admission?: Yes Plan: H1 blockers plus H2 blockers plus steroids (4) Pulmonary alveolar hemorrhage Is this a current diagnosis for this admission?: Yes Plan: Improved with steroid treatment - Time Total Critical Time (Minutes): 50
[2018-10-06] MEDS ORDERED: MEROPENEM 1 GM VIAL ONE (20:49)
[2018-10-06] MEDS ORDERED: MEROPENEM 1 GM VIAL IV PRN (21:07)
[2018-10-06] MEDS: MEROPENEM 1 GM in NORMAL SALINE 50 ML IV SCH (21:09)
[2018-10-06] MEDS ORDERED: INSULIN GLARGINE,HUM.REC.ANLOG 300 UNIT/3 ML INSULN.PEN SUBCUT SCH (22:00)
[2018-10-07] MEDS: FENTANYL CITRATE INJ/PF 100 MCG/2 ML AMPUL IV PRN ×2 (00:33→05:44)
[2018-10-07] MEDS: PROPOFOL 1,000 MG/100 ML INFUS..BTL IV PRN ×2 (00:34→05:25)
[2018-10-07] MEDS: MIDAZOLAM HCL 50 MG/100 ML RTUINJ IV PRN (00:34)
[2018-10-07 04:23] LABS: ABSOLUTE LYMPHOCYTES (AUTO) 0.6 10^3/uL (0.5-4.7); ABSOLUTE MONOCYTES (AUTO) 0.5 10^3/uL (0.1-1.4); ABSOLUTE NEUT (AUTO) 7.7 10^3/uL (1.7-8.2); BASOPHILS % (AUTO) 0.1 % (0-2); HEMOGLOBIN 10.9 g/dL (12.0-15.5); LYMPHOCYTES % (AUTO) 6.7 % (13-45); MEAN CORPUSCULAR HEMOGLOBIN 33.1 pg (27.0-33.4); MEAN CORPUSCULAR VOLUME 97 fl (80-97); MONOCYTES % (AUTO) 5.2 % (3-13); PLATELET COUNT 155 10^3/uL (150-450); RED BLOOD COUNT 3.28 10^6/uL (3.72-5.28); TOTAL CELLS COUNTED % (AUTO) 100 %; WHITE BLOOD COUNT 8.8 10^3/uL (4.0-10.5)
[2018-10-07 04:45] LABS: ALANINE AMINOTRANSFERASE 30 U/L (9-52); ALBUMIN 3.2 g/dL (3.5-5.0); ALKALINE PHOSPHATASE 131 U/L (38-126); ANION GAP 7 (5-19); ASPARTATE AMINO TRANSFERASE 58 U/L (14-36); BILIRUBIN,DIRECT 0.7 mg/dL (0.0-0.4); BILIRUBIN,TOTAL 0.9 mg/dL (0.2-1.3); BLOOD UREA NITROGEN 17 mg/dL (7-20); CALCIUM 8.3 mg/dL (8.4-10.2); CARBON DIOXIDE 25 mmol/L (22-30); CHLORIDE 109 mmol/L (98-107); CREATINE KINASE 128 U/L (30-135); GLUCOSE 283 mg/dL (75-110); POTASSIUM 4.2 mmol/L (3.6-5.0); SODIUM 141.4 mmol/L (137-145); TOTAL PROTEIN 6.2 g/dL (6.3-8.2)
[2018-10-07] MEDS: METHYLPREDNISOLONE INJ 125 MG/2 ML SDV IV SCH ×4 (05:43→23:45)
[2018-10-07] MEDS: INSULIN REG, HUMAN 100 UNIT/ML 3 ML VIAL (PYX) SUBCUT SCH ×4 (05:44→23:43)
[2018-10-07] MEDS: DIPHENHYDRAMINE HCL 50 MG/ML VIAL IV PRN (05:44)
[2018-10-07] MEDS: POTASSI CL 20 MEQ/1/2NS 1L 1000 ML IV PRN (05:50)
[2018-10-07] MEDS ORDERED: MEROPENEM 1 GM VIAL ONE (06:00)
[2018-10-07] MEDS: MEROPENEM 1 GM in NORMAL SALINE 50 ML IV SCH ×3 (06:03→21:12)
[2018-10-07 06:11] LABS: ARTERIAL BLOOD BASE EXCESS -0.1 mmol/L; ARTERIAL BLOOD H2CO3 1.16 mmol/L (1.05-1.35); ARTERIAL BLOOD HCO3 24.2 mmol/L (20-24); ARTERIAL BLOOD O2 SATURATION 93.6 % (94-98); ARTERIAL BLOOD PCO2 38.5 mmHg (35-45); ARTERIAL BLOOD PH 7.42 (7.35-7.45); ARTERIAL BLOOD PO2 66.6 mmHg (80-100); ARTERIAL BLOOD TOTAL CO2 25.4 mmol/L (21-25)
[2018-10-07 06:12] LABS: ARTERIAL BLOOD FIO2 40%
[2018-10-07] MEDS ORDERED: NORMAL SALINE 1000 ML 1,000 ML IV PRN (08:31)
--- NOTE | 2018-10-07 08:40 | RADIOLOGY REPORT (SQ) ---
EXAM DESCRIPTION: CHEST SINGLE VIEW COMPLETED DATE/TIME: 10/07/2018 7:09 am REASON FOR STUDY: resp failure COMPARISON: 10/06/2018 EXAM PARAMETERS: NUMBER OF VIEWS: One view. TECHNIQUE: Single frontal radiographic view of the chest acquired. RADIATION DOSE: NA LIMITATIONS: None. FINDINGS: LUNGS AND PLEURA: Bilateral airspace disease in the lungs, more so in the right lung with some progression since the prior study. Elevation of the right hemidiaphragm, unchanged finding. V yamil small right pleural effusion. No pneumothorax. MEDIASTINUM AND HILAR STRUCTURES: No masses. Contour normal. HEART AND VASCULAR STRUCTURES: Heart normal in size. Normal vasculature. BONES: No acute findings. HARDWARE: Endotracheal tube again identified. OTHER: No other significant finding. IMPRESSION: 1. Bilateral airspace disease, more so in the right lung, with interval progression sin ce the prior study dated 10/06/2018. Correlation suggested. TECHNICAL DOCUMENTATION: JOB ID: [id number]- All Rights Reserved Reading location - IP/workstation name: [email or web address]
--- NOTE | 2018-10-07 08:43 | PDOC PROGRESS REPORT ---
Subjective Progress Note for:: 10/07/18 Subjective:: Admitted on 10/05 to the MICU for severe respiratory distress due to angioedema. Overnight was placed back on Propofol in addition to Versed due to pain and anxiety. Propofol dose lowered due to soft BPs. This AM patient's mental status is improved. Her swelling is decreased. Able to open and close mouth, stick tongue. She is more awake and interactive. Complaining of pain and wanted to drink something. NO other complaints. 10/07/2018 no acute events in the last 24 hours. Patient is having a low-grade fever of 99.5. Presently on IV fluids half-normal saline at 125 cc/h. Versed was turned off this morning she is on propofol the nurses are trying to wean her off today. Patient is responding to the verbal commands by squeezing the hand. Looks restless may be because returning down the rate of sedation. Reason For Visit: ANGIOEDEMA, RESPIRATORY DISTRESS Physical Exam Vital Signs: Temp Pulse Resp BP Pulse Ox 99.5 F 71 20 124/78 94 10/06/18 16:00 10/06/18 22:00 10/07/18 06:00 10/07/18 05:50 10/07/18 06:00 Intake & Output 10/06/18 10/07/18 10/08/18 06:59 06:59 06:59 Intake Total 4061 3566 Output Total 1600 685 Balance 2461 2881 Weight 83.6 kg 87.3 kg General appearance: PRESENT: mild distress, other - Still intubated but is awake ,in the process of turning of the sedation. Head exam: PRESENT: atraumatic Neck exam: ABSENT: carotid bruit, JVD, lymphadenopathy, thyromegaly Respiratory exam: PRESENT: decreased breath sounds Cardiovascular exam: PRESENT: tachycardia GI/Abdominal exam: PRESENT: normal bowel sounds, soft. ABSENT: distended, guarding, mass, organolmegaly, rebound, tenderness Neurological exam: PRESENT: alert, awake, other - Still on ventilator. Psychiatric exam: PRESENT: agitated Results Laboratory Results: 10/07/18 04:02 10/07/18 04:02 10/07/18 10/07/18 10/07/18 04:02 04:02 06:00 WBC 8.8 RBC 3.28 L Hgb 10.9 L Hct 32.0 L MCV 97 MCH 33.1 MCHC 34.0 RDW 14.0 Plt Count 155 Seg Neutrophils % 88.0 H Lymphocytes % 6.7 L Monocytes % 5.2 Eosinophils % 0.0 Basophils % 0.1 Absolute Neutrophils 7.7 Absolute Lymphocytes 0.6 Absolute Monocytes 0.5 Absolute Eosinophils 0.0 Absolute Basophils 0.0 Carbonic Acid 1.16 HCO3/H2CO3 Ratio 20:1 ABG pH 7.42 ABG pCO2 38.5 ABG pO2 66.6 L ABG HCO3 24.2 H ABG O2 Saturation 93.6 L ABG Base Excess -0.1 FiO2 40% Sodium 141.4 Potassium 4.2 Chloride 109 H Carbon Dioxide 25 Anion Gap 7 BUN 17 Creatinine 0.46 L Est GFR ( Amer) > 60 Est GFR (Non-Af Amer) > 60 Glucose 283 H Calcium 8.3 L Magnesium 1.9 Total Bilirubin 0.9 AST 58 H ALT 30 Alkaline Phosphatase 131 H Total Protein 6.2 L Albumin 3.2 L 10/05/18 10/05/18 10/06/18 06:10 06:10 03:49 Creatine Kinase 70 755 H CK-MB (CK-2) Troponin I 0.057 NT-Pro-B Natriuret Pep 10/06/18 10/06/18 10/07/18 03:49 16:20 04:02 Creatine Kinase 128 CK-MB (CK-2) 11.30 H Troponin I 0.172 0.091 NT-Pro-B Natriuret Pep 2210 H Assessment & Plan - Diagnosis (1) 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 This is 2nd episode in 3 months. - In ED: Given severe distress, required nasoendotracheal intubation. TXA was given in ED after blood was noted. IV benadryl provided Management - Admit to MICU - Continue vent support for one additional day despite improvement - Versed and Propofol GTT ordered; would keep on lowest settings while minimizing discomfort and anxiety - Supportive care - IV benadryl ordered PRN - LAURA should NOT be used in future. Listed as allergy. ARBs should be used cautiously 10/07/2018 patient came to the emergency room with facial swelling difficulty breathing. Status post intubation. Plan is to wean her off the ventilator from today. Off the Versed drip but she is presently on propofol drip. Plan is to follow the weaning protocol today. (2) Acute respiratory failure with hypoxia Is this a current diagnosis for this admission?: Yes Plan: Most likely etiology. This is 2nd episode in 3 months. - In ED: Given severe distress, required nasoendotracheal intubation. TXA was given in ED after blood was noted. IV benadryl provided 10/07/2018-patient is admitted with acute respiratory failure U with hypoxia most likely secondary to angioedema caused by LAURA inhibitor. Patient is presently on propofol drip. On nasal endotracheal tube. Plan is to wean her off today. X- ray shows bilateral airspace disease she is on meropenem. (3) LFT elevation Is this a current diagnosis for this admission?: Yes Plan: AST to ALT ratio 2:1, in setting of history of heavy alcohol use. Enlarged liver noted on exam - LFTs downtrending on 10/05; continue to monitor 10/07/2018-LFTs are trending towards normal. Patient has enlarged liver. We will continue to follow her LFTs. Going to request for hepatitis profile. (4) Alcohol abuse Is this a current diagnosis for this admission?: Yes Plan: Has long standing history of alcohol use - Has IV ativan PRN in setting of w/d symptoms 10/07/2018 patient is in IV Ativan on as-needed basis. To watch for the DTs. (5) Diabetes Qualifiers: Diabetes mellitus type: type 2 Diabetes mellitus intermediate card tender insulin use: with snf use Is this a current diagnosis for this admission?: Yes Plan: At home is on Lantus 35U qHS - Continue NPO status - Blood sugars are elevated since admission likely due to high doses of steroids, will increase Lantus from 10U to 20U qHS - Continue LDISS with CBS checks q6 hours 10/07/2018-patient has a long history of diabetes mellitus latest blood sugar is 283 presently on Lantus 20 units nightly and also insulin sliding scale. Incre ase the Lantus to 25 twice a day and the plan is to continue the sliding scale before meals and at bedtime .hemoglobin A1c is requested. (6) Pulmonary alveolar hemorrhage Is this a current diagnosis for this admission?: Yes Plan: Concern for PAH given blood noted with suction. May also be from chest compression, was hypertensive, and had respiratory distress which could all contribute - Received TXA and IV steroids in ED - H&H have stablized and there is no evidence of active bleeding at this time - Continue IV methylprednisolone 125mg q6 hours 10/07/2018-at the time of intubation found to have blood in the endotracheal t ube. Patient was given an tranexamic acid to prevent bleeding. Patient is on IV steroids. hemoGlobin is 10.9 today we will do the CBC on daily basis. (7) UTI (urinary tract infection) Is this a current diagnosis for this admission?: Yes Plan: 10/07/2018 urine culture was positive for gram-negative rods. Patient is presently on meropenem. Plan is to continue the present management. - Time Time Spent with patient: 15-24 minutes Medications reviewed and adjusted accordingly: Yes Anticipated discharge: Home
[2018-10-07] MEDS ORDERED: DEXAMETHASONE SOD PHOSPHATE INJ 4 MG/1 ML VIAL IV ONE (08:57)
[2018-10-07] MEDS ORDERED: FUROSEMIDE INJ/PF 20 MG/2 ML SDV IV ONE (08:58)
[2018-10-07] MEDS ORDERED: DEXAMETHASONE SOD PHOSPHATE INJ 4 MG/1 ML VIAL ONE (08:58)
[2018-10-07] MEDS ORDERED: FUROSEMIDE INJ/PF 40 MG/4 ML SDV ONE (08:58)
[2018-10-07] MEDS ORDERED: LEVALBUTEROL HCL NEB 0.63 MG/3 ML AMPUL NEB PRN (09:16)
[2018-10-07] MEDS ORDERED: FUROSEMIDE INJ/PF 40 MG/4 ML SDV IV ONE (09:45)
[2018-10-07] MEDS ORDERED: DEXAMETHASONE SOD PHOS INJ 10 MG/1 ML VIAL IV ONE (09:45)
[2018-10-07] MEDS ORDERED: (PENDING PHARMACY ID) (Dextroamphetamine/Amphetamine [Adderall Xr 20 Mg Capsule] 20 MG) PO SCH (10:00)
[2018-10-07] MEDS ORDERED: (PENDING PHARMACY ID) (Lisinopril [Zestril] 20 MG) PO SCH (10:00)
[2018-10-07] MEDS: PANTOPRAZOLE SODIUM 40 MG VIAL IV SCH (10:43)
[2018-10-07] MEDS: ENOXAPARIN SODIUM INJ 40 MG/0.4 ML DISP.SYRIN SUBCUT SCH (10:44)
[2018-10-07] MEDS: PAROXETINE HCL 25 MG TAB.SR.24H PO SCH (13:05)
[2018-10-07] MEDS: OXYCODONE HCL IR 5 MG TABLET PO PRN ×2 (13:05→18:40)
[2018-10-07] MEDS: LORAZEPAM INJ 2 MG/1 ML VIAL IV PRN ×4 (13:06→22:09)
[2018-10-07] MEDS: INSULIN GLARGINE,HUM.REC.ANLOG 300 UNIT/3 ML INSULN.PEN SUBCUT SCH ×2 (13:07→18:42)
[2018-10-07] MEDS: OXYCODONE-ACETAMINOPHEN 5-325 MG TABLET PO PRN ×2 (13:08→18:41)
[2018-10-07] MEDS: IPRATROPIUM/ALBUTEROL 0.5-2.5 MG/3 ML AMPUL NEB SCH ×2 (14:44→19:39)
[2018-10-07] MEDS ORDERED: NORMAL SALINE 1000 ML 1,000 ML with POTASSIUM CHLORIDE 20 MEQ, MAGNESIUM SULFATE 8 MEQ,... IV SCH ×4 (19:00)
[2018-10-07] MEDS: ATORVASTATIN CALCIUM 20 MG TABLET PO SCH (21:12)
[2018-10-08] MEDS: LORAZEPAM INJ 2 MG/1 ML VIAL IV PRN ×4 (00:59→21:04)
[2018-10-08] MEDS: MEROPENEM 1 GM in NORMAL SALINE 50 ML IV SCH ×3 (05:24→21:06)
[2018-10-08] MEDS: INSULIN REG, HUMAN 100 UNIT/ML 3 ML VIAL (PYX) SUBCUT SCH ×3 (05:24→17:49)
[2018-10-08] MEDS: LEVOTHYROXINE SODIUM 0.075 MG TABLET PO SCH (05:25)
[2018-10-08 05:34] LABS: ABSOLUTE LYMPHOCYTES (AUTO) 0.6 10^3/uL (0.5-4.7); ABSOLUTE MONOCYTES (AUTO) 0.4 10^3/uL (0.1-1.4); ABSOLUTE NEUT (AUTO) 6.4 10^3/uL (1.7-8.2); BASOPHILS % (AUTO) 0.1 % (0-2); HEMOGLOBIN 11.2 g/dL (12.0-15.5); LYMPHOCYTES % (AUTO) 7.6 % (13-45); MEAN CORPUSCULAR HGB CONC 34.9 g/dL (32.0-36.0); MEAN CORPUSCULAR VOLUME 97 fl (80-97); MONOCYTES % (AUTO) 5.2 % (3-13); PLATELET COUNT 155 10^3/uL (150-450); RED BLOOD COUNT 3.29 10^6/uL (3.72-5.28); RED CELL DISTRIBUTION WIDTH 13.6 % (11.5-14.0); SEGMENTED NEUTROPHILS % (AUTO) 87.1 % (42-78); TOTAL CELLS COUNTED % (AUTO) 100 %; WHITE BLOOD COUNT 7.4 10^3/uL (4.0-10.5)
[2018-10-08 05:52] LABS: ALANINE AMINOTRANSFERASE 41 U/L (9-52); ALBUMIN 3.2 g/dL (3.5-5.0); ALKALINE PHOSPHATASE 137 U/L (38-126); ANION GAP 9 (5-19); ASPARTATE AMINO TRANSFERASE 59 U/L (14-36); BILIRUBIN,DIRECT 0.5 mg/dL (0.0-0.4); BILIRUBIN,TOTAL 1.1 mg/dL (0.2-1.3); BLOOD UREA NITROGEN 17 mg/dL (7-20); CALCIUM 8.9 mg/dL (8.4-10.2); CARBON DIOXIDE 27 mmol/L (22-30); CHLORIDE 106 mmol/L (98-107); GLUCOSE 291 mg/dL (75-110); POTASSIUM 4.2 mmol/L (3.6-5.0); SODIUM 141.8 mmol/L (137-145); TOTAL PROTEIN 6.2 g/dL (6.3-8.2)
[2018-10-08] MEDS: METHYLPREDNISOLONE INJ 125 MG/2 ML SDV IV SCH ×2 (06:00→12:13)
[2018-10-08 06:42] LABS: ARTERIAL BLOOD BASE EXCESS 2.7 mmol/L; ARTERIAL BLOOD FIO2 60%; ARTERIAL BLOOD H2CO3 1.22 mmol/L (1.05-1.35); ARTERIAL BLOOD O2 SATURATION 95.2 % (94-98); ARTERIAL BLOOD PCO2 40.4 mmHg (35-45); ARTERIAL BLOOD PH 7.44 (7.35-7.45); ARTERIAL BLOOD PO2 72.8 mmHg (80-100); ARTERIAL BLOOD TOTAL CO2 28.2 mmol/L (21-25)
[2018-10-08] MEDS: IPRATROPIUM/ALBUTEROL 0.5-2.5 MG/3 ML AMPUL NEB SCH ×3 (08:32→20:58)
--- NOTE | 2018-10-08 08:40 | RADIOLOGY REPORT (SQ) ---
EXAM DESCRIPTION: CHEST SINGLE VIEW COMPLETED DATE/TIME: 10/08/2018 6:40 am REASON FOR STUDY: resp failure COMPARISON: Two-view chest 03/06/2017 Chest films 10/05/2018, 10/06/2018, 10/07/2018 EXAM PARAMETERS: NUMBER OF VIEWS: One view. TECHNIQUE: Single frontal radiographic view of the chest acquired. RADIATION DOSE: NA LIMITATIONS: None. FINDINGS: LUNGS AND PLEURA: Partial clearing of the diffuse alveolar and interstitial infiltrates as compared to 10/05/2018. No pleural effusions or pneumothorax. MEDIASTINUM AND HILAR STRUCTURES: No masses. Contour normal. HEART AND VASCULAR STRUCTURES: Heart normal in size. Normal vasculature. BONES: No acute findings. HARDWARE: None in the chest. OTHER: No other significant finding. IMPRESSION: Partial clearing of diffuse bilateral airspace disease as compared to 10/05/2018. TECHNICAL DOCUMENTATION: JOB ID: [id number] [employer]- All Rights Reserved Reading location - IP/workstation name: [email or web address]
--- NOTE | 2018-10-08 09:01 | PDOC PROGRESS REPORT ---
Subjective Progress Note for:: 10/08/18 Subjective:: Admitted on 10/05 to the MICU for severe respiratory distress due to angioedema. Overnight was placed back on Propofol in addition to Versed due to pain and anxiety. Propofol dose lowered due to soft BPs. This AM patient's mental status is improved. Her swelling is decreased. Able to open and close mouth, stick tongue. She is more awake and interactive. Complaining of pain and wanted to drink something. NO other complaints. 10/07/2018 no acute events in the last 24 hours. Patient is having a low-grade fever of 99.5. Presently on IV fluids half-normal saline at 125 cc/h. Versed was turned off this morning she is on propofol the nurses are trying to wean her off today. Patient is responding to the verbal commands by squeezing the hand. Looks restless may be because returning down the rate of sedation. 10/08/2018-patient was successfully extubated yesterday. No acute events in the last 24 hours. Patient is refusing BiPAP most of the time. We explained to her that she needs to be on BiPAP because during sleep her pulse ox are dropping less than 90. While awake pulse ox is around 93% on 2 L. Chest x-ray done this morning shows slight improvement in airspace disease. Sputum cultures positive for gram-positive cocci in clusters urine culture is positive for E. coli. Reason For Visit: ANGIOEDEMA, RESPIRATORY DISTRESS Physical Exam Vital Signs: Temp Pulse Resp BP Pulse Ox 97.3 F 60 22 H 136/84 H 93 10/08/18 08:00 10/08/18 08:32 10/08/18 08:32 10/08/18 08:00 10/08/18 08:32 Intake & Output 10/07/18 10/08/18 10/09/18 06:59 06:59 06:59 Intake Total 3566 1357 Output Total 685 3080 60 Balance 1891 -1723 -60 Weight 87.3 kg 87.3 kg General appearance: PRESENT: no acute distress Head exam: PRESENT: atraumatic Eye exam: PRESENT: PERRLA Mouth exam: PRESENT: moist, tongue midline Neck exam: ABSENT: carotid bruit, JVD, lymphadenopathy, thyromegaly Respiratory exam: PRESENT: decreased breath sounds, wheezes Cardiovascular exam: PRESENT: tachycardia GI/Abdominal exam: PRESENT: normal bowel sounds, soft. ABSENT: distended, guarding, mass, organolmegaly, rebound, tenderness Extremities exam: PRESENT: full ROM. ABSENT: calf tenderness, clubbing, pedal edema Neurological exam: PRESENT: alert, awake, oriented to person, oriented to place, oriented to time, oriented to situation, CN II-XII grossly intact. ABSENT: motor sensory deficit Psychiatric exam: PRESENT: appropriate affect, normal mood. ABSENT: homicidal ideation, suicidal ideation Results Laboratory Results: 10/08/18 05:06 10/08/18 05:06 10/08/18 10/08/18 10/08/18 04:25 05:06 05:06 WBC 7.4 RBC 3.29 L Hgb 11.2 L Hct 32.0 L MCV 97 MCH 34.0 H MCHC 34.9 RDW 13.6 Plt Count 155 Seg Neutrophils % 87.1 H Lymphocytes % 7.6 L Monocytes % 5.2 Eosinophils % 0.0 Basophils % 0.1 Absolute Neutrophils 6.4 Absolute Lymphocytes 0.6 Absolute Monocytes 0.4 Absolute Eosinophils 0.0 Absolute Basophils 0.0 Carbonic Acid 1.22 HCO3/H2CO3 Ratio 22:1 ABG pH 7.44 ABG pCO2 40.4 ABG pO2 72.8 L ABG HCO3 27.0 H ABG O2 Saturation 95.2 ABG Base Excess 2.7 FiO2 60% Sodium 141.8 Potassium 4.2 Chloride 106 Carbon Dioxide 27 Anion Gap 9 BUN 17 Creatinine 0.50 L Est GFR ( Amer) > 60 Est GFR (Non-Af Amer) > 60 Glucose 291 H Calcium 8.9 Magnesium 2.1 Total Bilirubin 1.1 AST 59 H ALT 41 Alkaline Phosphatase 137 H Total Protein 6.2 L Albumin 3.2 L 10/05/18 22:30 Catheterized Urine Urine Culture - Final Escherichia Coli 10/05/18 10/05/18 10/06/18 06:10 06:10 03:49 Creatine Kinase 70 755 H CK-MB (CK-2) Troponin I 0.057 NT-Pro-B Natriuret Pep 10/06/18 10/06/18 10/07/18 03:49 16:20 04:02 Creatine Kinase 128 CK-MB (CK-2) 11.30 H Troponin I 0.172 0.091 NT-Pro-B Natriuret Pep 2210 H Impressions: Chest X-Ray 10/08/18 08:00 IMPRESSION: Partial clearing of diffuse bilateral airspace disease as compared to 10/05/2018. 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 This is 2nd episode in 3 months. - In ED: Given severe distress, required nasoendotracheal intubation. TXA was given in ED after blood was noted. IV benadryl provided Management - Admit to MICU - Continue vent support for one additional day despite improvement - Versed and Propofol GTT ordered; would keep on lowest settings while minimizing discomfort and anxiety - Supportive care - IV benadryl ordered PRN - LAURA should NOT be used in future. Listed as allergy. ARBs should be used cautiously 10/07/2018 patient came to the emergency room with facial swelling difficulty breathing. Status post intubation. Plan is to wean her off the ventilator from today. Off the Versed drip but she is presently on propofol drip. Plan is to follow the weaning protocol today. 10/08/2018-patient was admitted with angioedema due to LAURA inhibitor hours. Status post intubation and extubation. Chest x-ray shows improved a space disease. Sputum culture is positive for gram-positive cocci. Urine culture is positive for E. coli. Angioedema resolved. She is off the LAURA inhibitors (2) Acute respiratory failure with hypoxia Is this a current diagnosis for this admission?: Yes Plan: Most likely etiology. This is 2nd episode in 3 months. - In ED: Given severe distress, required nasoendotracheal intubation. TXA was given in ED after blood was noted. IV benadryl provided 10/07/2018-patient is admitted with acute respiratory failure U with hypoxia most likely secondary to angioedema caused by LAURA inhibitor. Patient is presently on propofol drip. On nasal endotracheal tube. Plan is to wean her off today. X- ray shows bilateral airspace disease she is on meropenem. 10/08/2018-patient was admitted with acute respiratory failure with hypoxia most likely secondary to angioedema caused by LAURA inhibitor. Chest x-ray showing bilateral airspace disease it may be aspiration pneumonia. Cultures are positive for gram-positive cocci in clusters. Waiting for the complete report. Patient pulse ox today 93% on 6 L. And is presently on BiPAP as needed, scheduled and as needed nebulizations are also on IV Solu-Medrol 80 mg every 6 hours. Plan is to decrease IV Solu-Medrol to 40 mg every 12 hours. (3) LFT elevation Is this a current diagnosis for this admission?: Yes Plan: AST to ALT ratio 2:1, in setting of history of heavy alcohol use. Enlarged liver noted on exam - LFTs downtrending on 10/05; continue to monitor 10/07/2018-LFTs are trending towards normal. Patient has enlarged liver. We will continue to follow her LFTs. Going to request for hepatitis profile. 10/08/2018-patient came in with elevated LFTs gradually improving now close to normal. (4) Alcohol abuse Is this a current diagnosis for this admission?: Yes Plan: Has long standing history of alcohol use - Has IV ativan PRN in setting of w/d symptoms 10/07/2018 patient is in IV Ativan on as-needed basis. To watch for the DTs. 10/08/2018-patient is admitted at this morning that he has a history of heavy alcohol use. She is on IV Ativan as needed basis. To watch for the DTs. (5) Diabetes Qualifiers: Diabetes mellitus type: type 2 Diabetes mellitus care home insulin use: with care home use Is this a current diagnosis for this admission?: Yes Plan: At home is on Lantus 35U qHS - Continue NPO status - Blood sugars are elevated since admission likely due to high doses of steroids, will increase Lantus from 10U to 20U qHS - Continue LDISS with CBS checks q6 hours 10/07/2018-patient has a long history of diabetes mellitus latest blood sugar is 283 presently on Lantus 20 units nightly and also insulin sliding scale. Increa se the Lantus to 25 twice a day and the plan is to continue the sliding scale before meals and at bedtime .hemoglobin A1c is requested. \ 10/08/2018-patient blood sugar is 299 today. She is on Lantus 25 units twice a day. Presently on IV Solu-Medrol 80 mg every 6 hours. Hemo Globin A1c is 10.4. She is also on sliding scale before meals and at bedtime plan is to continue the present management. IV Solu-Medrol is decreased to 40 mg every 12 hours. (6) Pulmonary alveolar hemorrhage Is this a current diagnosis for this admission?: Yes Plan: Concern for PAH given blood noted with suction. May also be from chest compression, was hypertensive, and had respiratory distress which could all contribute - Received TXA and IV steroids in ED - H&H have stablized and there is no evidence of active bleeding at this time - Continue IV methylprednisolone 125mg q6 hours 10/07/2018-at the time of intubation found to have blood in the endotracheal tube. Patient was given an tranexamic acid to prevent bleeding. Patient is on IV steroids. hemoGlobin is 10.9 today we will do the CBC on daily basis. 10/08/2018-patient is admitted with suspected pulmonary alveolar hemorrhage and given tranexamic acid to prevent the bleeding. No more bleeding noticed. Hemoglobin is 11.2 stable. (7) UTI (urinary tract infection) Is this a current diagnosis for this admission?: Yes Plan: 10/07/2018 urine culture was positive for gram-negative rods. Patient is presently on meropenem. Plan is to continue the present management. 10/08/2018 urine culture is positive for E. coli on meropenem. Patient is afebrile. T-max is 98.2 today. (8) Pneumonia Is this a current diagnosis for this admission?: Yes Plan: 10/08/2018-latest chest x-ray showing improvement in bilateral airspace disease most likely aspiration pneumonia. Cultures are positive for gram-positive cocci in clusters. Plan is to continue the meropenem. - Time Time Spent with patient: 15-24 minutes Smoking Cessation Education: over 10 minutes Medications reviewed and adjusted accordingly: Yes Anticipated discharge: Home
[2018-10-08] MEDS: INSULIN GLARGINE,HUM.REC.ANLOG 300 UNIT/3 ML INSULN.PEN SUBCUT SCH ×2 (09:20→17:49)
[2018-10-08] MEDS: ENOXAPARIN SODIUM INJ 40 MG/0.4 ML DISP.SYRIN SUBCUT SCH (09:20)
[2018-10-08] MEDS: FAMOTIDINE 20 MG TABLET PO SCH ×2 (09:21→21:06)
[2018-10-08] MEDS: METHYLPREDNISOLONE INJ 40 MG/1 ML SDV IV SCH ×2 (09:21→21:02)
[2018-10-08] MEDS: PAROXETINE HCL 25 MG TAB.SR.24H PO SCH (09:21)
[2018-10-08] MEDS: OXYCODONE-ACETAMINOPHEN 5-325 MG TABLET PO PRN ×4 (09:31→21:57)
[2018-10-08] MEDS: OXYCODONE HCL IR 5 MG TABLET PO PRN ×3 (09:33→17:50)
--- NOTE | 2018-10-08 15:04 | PDOC PROGRESS REPORT ---
Subjective Progress Note for:: 10/08/18 Subjective:: Patient without complaints Reason For Visit: ANGIOEDEMA, RESPIRATORY DISTRESS Physical Exam Vital Signs: Temp Pulse Resp BP Pulse Ox 97.3 F 60 22 H 136/84 H 93 10/08/18 08:00 10/08/18 08:32 10/08/18 08:32 10/08/18 08:00 10/08/18 08:32 Intake & Output 10/07/18 10/08/18 10/09/18 06:59 06:59 06:59 Intake Total 3566 1357 Output Total 685 3080 60 Balance 2881 -1723 -60 Weight 87.3 kg 87.3 kg General appearance: PRESENT: no acute distress, cooperative, well-developed, well-nourished Head exam: PRESENT: atraumatic, normocephalic Eye exam: PRESENT: conjunctiva pale, EOMI. ABSENT: nystagmus, periorbital swelling, scleral icterus Mouth exam: PRESENT: dry mucosa, neck supple, tongue midline Neck exam: ABSENT: carotid bruit, full ROM, JVD, lymphadenopathy, meningismus, tenderness, thyromegaly, tracheal deviation, tracheostomy, other Respiratory exam: PRESENT: decreased breath sounds, prolonged expiratory phas, rales, rhonchi, unlabored. ABSENT: retraction, stridor Cardiovascular exam: PRESENT: RRR, +S1, +S2 Pulses: PRESENT: normal radial pulses GI/Abdominal exam: PRESENT: soft. ABSENT: tenderness Extremities exam: ABSENT: calf tenderness, clubbing, joint swelling Musculoskeletal exam: ABSENT: deformity, dislocation Neurological exam: PRESENT: altered, awake Psychiatric exam: PRESENT: manic Skin exam: PRESENT: dry, warm Results Laboratory Results: 10/08/18 05:06 10/08/18 05:06 10/08/18 10/08/18 10/08/18 04:25 05:06 05:06 WBC 7.4 RBC 3.29 L Hgb 11.2 L Hct 32.0 L MCV 97 MCH 34.0 H MCHC 34.9 RDW 13.6 Plt Count 155 Seg Neutrophils % 87.1 H Lymphocytes % 7.6 L Monocytes % 5.2 Eosinophils % 0.0 Basophils % 0.1 Absolute Neutrophils 6.4 Absolute Lymphocytes 0.6 Absolute Monocytes 0.4 Absolute Eosinophils 0.0 Absolute Basophils 0.0 Carbonic Acid 1.22 HCO3/H2CO3 Ratio 22:1 ABG pH 7.44 ABG pCO2 40.4 ABG pO2 72.8 L ABG HCO3 27.0 H ABG O2 Saturation 95.2 ABG Base Excess 2.7 FiO2 60% Sodium 141.8 Potassium 4.2 Chloride 106 Carbon Dioxide 27 Anion Gap 9 BUN 17 Creatinine 0.50 L Est GFR ( Amer) > 60 Est GFR (Non-Af Amer) > 60 Glucose 291 H Calcium 8.9 Magnesium 2.1 Total Bilirubin 1.1 AST 59 H ALT 41 Alkaline Phosphatase 137 H Total Protein 6.2 L Albumin 3.2 L 10/05/18 22:30 Catheterized Urine Urine Culture - Final Escherichia Coli 10/05/18 10/05/18 10/06/18 06:10 06:10 03:49 Creatine Kinase 70 755 H CK-MB (CK-2) Troponin I 0.057 NT-Pro-B Natriuret Pep 10/06/18 10/06/18 10/07/18 03:49 16:20 04:02 Creatine Kinase 128 CK-MB (CK-2) 11.30 H Troponin I 0.172 0.091 NT-Pro-B Natriuret Pep 2210 H Impressions: Chest X-Ray 10/08/18 08:00 IMPRESSION: Partial clearing of diffuse bilateral airspace disease as compared to 10/05/2018. Assessment & Plan - Diagnosis (1) Acute respiratory failure with hypoxia Is this a current diagnosis for this admission?: Yes Plan: PAO2/FIO2 =122 chest x-ray unchanged concerned with increasing FiO2, however patient still comfortable (2) Alcohol abuse Is this a current diagnosis for this admission?: Yes Plan: DT precautions (3) Angioedema due to angiotensin converting enzyme inhibitor (LAURA-I) Is this a current diagnosis for this admission?: No (4) Pulmonary alveolar hemorrhage Is this a current diagnosis for this admission?: Yes Plan: this would account for abnormal chest x-ray - Time Total Critical Time (Minutes): 40
--- NOTE | 2018-10-08 15:05 | PDOC PROGRESS REPORT ---
Subjective Progress Note for:: 10/07/18 Subjective:: ex to bipap Reason For Visit: ANGIOEDEMA, RESPIRATORY DISTRESS Physical Exam Vital Signs: Temp Pulse Resp BP Pulse Ox 98.8 F 66 23 H 105/64 97 10/07/18 08:00 10/07/18 08:00 10/07/18 08:00 10/07/18 08:00 10/07/18 08:00 Intake & Output 10/06/18 10/07/18 10/08/18 06:59 06:59 06:59 Intake Total 4061 3566 Output Total 1600 685 20 Balance 2461 2881 -20 Weight 83.6 kg 87.3 kg General appearance: PRESENT: disheveled, mild distress, well-developed, well- nourished Head exam: PRESENT: atraumatic, normocephalic Eye exam: PRESENT: conjunctiva pale, EOMI. ABSENT: nystagmus, periorbital swelling Mouth exam: PRESENT: dry mucosa, neck supple, tongue midline Neck exam: ABSENT: carotid bruit, full ROM, JVD, lymphadenopathy, meningismus, tenderness, thyromegaly, tracheal deviation, tracheostomy, other Respiratory exam: PRESENT: prolonged expiratory phas, rhonchi, symmetrical, unlabored. ABSENT: rales, retraction, stridor, tachypnea Cardiovascular exam: PRESENT: RRR, +S1, +S2, tachycardia Pulses: PRESENT: normal radial pulses GI/Abdominal exam: PRESENT: soft. ABSENT: tenderness Extremities exam: ABSENT: calf tenderness, clubbing, joint swelling, pedal edema Musculoskeletal exam: ABSENT: deformity, dislocation Neurological exam: PRESENT: altered, awake Psychiatric exam: PRESENT: agitated Focused psych exam: PRESENT: paranoid Skin exam: PRESENT: dry, warm Results Laboratory Results: 10/07/18 04:02 10/07/18 04:02 10/07/18 10/07/18 10/07/18 04:02 04:02 06:00 WBC 8.8 RBC 3.28 L Hgb 10.9 L Hct 32.0 L MCV 97 MCH 33.1 MCHC 34.0 RDW 14.0 Plt Count 155 Seg Neutrophils % 88.0 H Lymphocytes % 6.7 L Monocytes % 5.2 Eosinophils % 0.0 Basophils % 0.1 Absolute Neutrophils 7.7 Absolute Lymphocytes 0.6 Absolute Monocytes 0.5 Absolute Eosinophils 0.0 Absolute Basophils 0.0 Carbonic Acid 1.16 HCO3/H2CO3 Ratio 20:1 ABG pH 7.42 ABG pCO2 38.5 ABG pO2 66.6 L ABG HCO3 24.2 H ABG O2 Saturation 93.6 L ABG Base Excess -0.1 FiO2 40% Sodium 141.4 Potassium 4.2 Chloride 109 H Carbon Dioxide 25 Anion Gap 7 BUN 17 Creatinine 0.46 L Est GFR ( Amer) > 60 Est GFR (Non-Af Amer) > 60 Glucose 283 H Calcium 8.3 L Magnesium 1.9 Total Bilirubin 0.9 AST 58 H ALT 30 Alkaline Phosphatase 131 H Total Protein 6.2 L Albumin 3.2 L 10/05/18 10/05/18 10/06/18 06:10 06:10 03:49 Creatine Kinase 70 755 H CK-MB (CK-2) Troponin I 0.057 NT-Pro-B Natriuret Pep 10/06/18 10/06/18 10/07/18 03:49 16:20 04:02 Creatine Kinase 128 CK-MB (CK-2) 11.30 H Troponin I 0.172 0.091 NT-Pro-B Natriuret Pep 2210 H Impressions: Chest X-Ray 10/07/18 06:00 IMPRESSION: 1. Bilateral airspace disease, more so in the right lung, with interval progression since the prior study dated 10/06/2018. Correlation s uggested. Assessment & Plan - Diagnosis (1) Acute respiratory failure with hypoxia Is this a current diagnosis for this admission?: Yes Plan: Unchanged last 24 hours (2) Alcohol abuse Is this a current diagnosis for this admission?: Yes Plan: DT precautions (3) Angioedema due to angiotensin converting enzyme inhibitor (LAURA-I) Is this a current diagnosis for this admission?: No (4) Pulmonary alveolar hemorrhage Is this a current diagnosis for this admission?: Yes Plan: this would account for abnormal chest x-ray - Time Total Critical Time (Minutes): 50
[2018-10-08] MEDS: ATORVASTATIN CALCIUM 20 MG TABLET PO SCH (21:02)
[2018-10-09] MEDS: INSULIN REG, HUMAN 100 UNIT/ML 3 ML VIAL (PYX) SUBCUT SCH ×5 (01:27→23:58)
[2018-10-09] MEDS: OXYCODONE-ACETAMINOPHEN 5-325 MG TABLET PO PRN ×3 (04:04→20:29)
[2018-10-09] MEDS: LORAZEPAM INJ 2 MG/1 ML VIAL IV PRN ×3 (04:04→23:57)
[2018-10-09 04:29] LABS: ABSOLUTE LYMPHOCYTES (AUTO) 0.9 10^3/uL (0.5-4.7); ABSOLUTE MONOCYTES (AUTO) 0.4 10^3/uL (0.1-1.4); ABSOLUTE NEUT (AUTO) 5.5 10^3/uL (1.7-8.2); HEMATOCRIT 33.9 % (36.0-47.0); HEMOGLOBIN 11.6 g/dL (12.0-15.5); LYMPHOCYTES % (AUTO) 13.2 % (13-45); MEAN CORPUSCULAR HEMOGLOBIN 32.8 pg (27.0-33.4); MEAN CORPUSCULAR HGB CONC 34.1 g/dL (32.0-36.0); MEAN CORPUSCULAR VOLUME 96 fl (80-97); MONOCYTES % (AUTO) 6.3 % (3-13); PLATELET COUNT 158 10^3/uL (150-450); RED BLOOD COUNT 3.52 10^6/uL (3.72-5.28); RED CELL DISTRIBUTION WIDTH 13.8 % (11.5-14.0); SEGMENTED NEUTROPHILS % (AUTO) 80.5 % (42-78); TOTAL CELLS COUNTED % (AUTO) 100 %; WHITE BLOOD COUNT 6.8 10^3/uL (4.0-10.5)
[2018-10-09 04:45] LABS: ALANINE AMINOTRANSFERASE 43 U/L (9-52); ALBUMIN 3.4 g/dL (3.5-5.0); ALKALINE PHOSPHATASE 136 U/L (38-126); AMYLASE 50 U/L (30-110); ANION GAP 9 (5-19); ASPARTATE AMINO TRANSFERASE 73 U/L (14-36); BILIRUBIN,DIRECT 0.6 mg/dL (0.0-0.4); BILIRUBIN,TOTAL 1.4 mg/dL (0.2-1.3); BLOOD UREA NITROGEN 21 mg/dL (7-20); CALCIUM 9.1 mg/dL (8.4-10.2); CARBON DIOXIDE 29 mmol/L (22-30); CHLORIDE 103 mmol/L (98-107); GLUCOSE 240 mg/dL (75-110); LIPASE 89.2 U/L (23-300); POTASSIUM 4.3 mmol/L (3.6-5.0); TOTAL PROTEIN 6.3 g/dL (6.3-8.2)
[2018-10-09] MEDS: MEROPENEM 1 GM in NORMAL SALINE 50 ML IV SCH ×3 (06:29→21:49)
[2018-10-09] MEDS: LEVOTHYROXINE SODIUM 0.075 MG TABLET PO SCH (06:29)
[2018-10-09 06:39] LABS: HEPATITIS A AB IGM Negative (Negative); HEPATITIS B CORE AB IGM Negative (Negative); HEPATITS B SURFACE ANTIGEN Negative (Negative)
[2018-10-09 07:39] LABS: HEPATITIS C VIRUS ANTIBODY <0.1 s/co ratio (0.0-0.9)
--- NOTE | 2018-10-09 07:40 | ER Document Report ---
Entered by ERA VASQUEZ SCRIBE 10/05/18 0615 Acting as scribe for:CHANO GUTIERREZ MD ED Respiratory Problem - General Chief Complaint: Facial Swelling Stated Complaint: DIFFICULTY BREATHING Time Seen by Provider: 10/05/18 06:12 Primary Care Provider: DIXIE BERRY MD [Primary Care Provider] - Follow up as needed Mode of Arrival: Wheelchair Information source: Relative Cannot obtain history due to: Intubated, Altered mental status Notes: 58-year-old female patient comes emergency room with swelling to her lips tongue and difficulty breathing. The patient rapidly deteriorated on arrival and was intubated nasotracheally with a 6.0 endotracheal tube. The patient's spouse reports that they are . He reports she had a similar less severe episode of swelling to her lips and tongue 2-3 months ago, she took Benadryl, she did report getting in the shower and it made it more difficult to breathe. She did continue to manage herself with just Benadryl until the reaction went away. She never reported this to her primary care provider. She does take lisinopril. The spouse states that he saw her at 6 PM last night and she was fine. He states that she called him about 02:30 this morning and was having trouble talking due to the swelling of her lips and tongue. She had told him she woke up about midnight. He went over to her house, she initially declined coming to the emergency room and continue taking Benadryl. He sat with her until 5:45 AM, when her breathing became much worse and she agreed to come to the emergency room. As stated above, shortly after the patient arrived in the trauma bay, she began turning dusky blue and was not moving air. She did appear to go into an asystolic arrest with no pulse. Chest compressions were started by the PCT, I placed the 6.0 endotracheal tube through the right nostril. On the first attempt to bag air into the lungs, a somewhat dark bloody discharge came back. We did have good breath sounds on both sides and her face color returned to n ormal, and oxygen saturations began to come up, and she reestablished a pulse and eventually a very high blood pressure. Propofol drip was started to sedate her. Chest x-ray done to confirm tube placement shows what is most likely pulmonary hemorrhage in both lungs, right greater than left. TRAVEL OUTSIDE OF THE [place] IN LAST 30 DAYS: No - Related Data Allergies/Adverse Reactions: lisinopril Adverse Reaction (Severe, Verified 10/05/18 08:37) Angioneurotic Edema Hair Dye Allergy (Uncoded 03/14/17 08:37) Past Medical History - General Information source: Relative, [facility] Records Cannot obtain history due to: Intubated, Unstable vital signs, Altered mental status - Social History Smoking Status: Unknown if Ever Smoked Cigarette use (# per day): No Chew tobacco use (# tins/day): No Smoking Education Provided: No Frequency of alcohol use: Heavy Drug Abuse: Marijuana Occupation: Unemployed Lives with: Family Family History: Reviewed & Not Pertinent - Past Medical History Cardiac Medical History: Reports: Hx Hypercholesterolemia, Hx Hypertension - Lis inopril Pulmonary Medical History: Reports: Hx Bronchitis Neurological Medical History: Reports: Other - Cerebral palsy Endocrine Medical History: Reports: Hx Diabetes Mellitus Type 2 Musculoskeletal Medical History: Reports Hx Arthritis - R FOOT Psychiatric Medical History: Reports: Hx Depression Past Surgical History: Reports: Hx Cholecystectomy, Hx Orthopedic Surgery - right foot, low back, multiple surgeries to the right lower extremity - Immunizations Immunizations up to date: Yes Hx Diphtheria, Pertussis, Tetanus Vaccination: Yes Review of Systems - Review of Systems -: Yes ROS unobtainable due to patient's medical condition Physical Exam - Vital signs Vitals: Pulse Ox 42 L 10/05/18 06:04 - Notes Notes: PHYSICAL EXAMINATION: GENERAL: Patient has grossly swollen lips and tongue and having considerable difficulty moving air. She quickly became cyanotic and unresponsive. HEAD: Atraumatic, normocephalic. EYES: Pupils equal round and reactive to light, extraocular movements intact, sclera anicteric, conjunctiva are normal. ENT: Considerable swelling to the lips and tongue. It is not possible to see beyond the swollen tongue to view the posterior pharynx. NECK: Normal range of motion, supple without lymphadenopathy LUNGS: Breath sounds coarse rhonchi. HEART: Regular rate and rhythm without murmurs, tachycardic. ABDOMEN: Soft, obese, somewhat distended, enlarged liver on palpation. EXTREMITIES: Normal range of motion, no pitting or edema. No cyanosis. NEUROLOGICAL: Cranial nerves grossly intact. Patient weakly went into extremis, so exam is limited to just a few few seconds of witnessing normal neurological function. PSYCH: Cannot evaluate at this time. SKIN: Warm, Dry, normal turgor, no rashes or lesions noted. Course - Re-evaluation Re-evalutation: 10/05/18 10:19 The patient was becoming agitated again, and oxygen saturations were running 80%. She was given additional ketamine, fentanyl, and increase on the propofol drip. Respiratory was called to suction the patient and increase her FiO2. There was some bloody drainage suctioned from the endotracheal tube, and this seemed to help her oxygen saturations as they came up to about 95%. A repeat chest x-ray shows the endotracheal tube to remain in good position, and the lung farfan appear to be a little more clear at this time, probably due to the positive pressure ventilation. 10/05/18 11:22 At this time the patient has a pulse ox of 100%, and seems to be resting comfortably. The patient has just been accepted on the hospitalist service. I spoke with Dr. Cameron of the hospitalists service at 07:18, again at 09:30, and now at 11:18. - Vital Signs Vital signs: Temp Pulse Resp BP Pulse Ox 99 F 120 H 19 97/66 L 100 10/05/18 10:06 10/05/18 10:06 10/05/18 10:56 10/05/18 10:56 10/05/18 10:56 - Laboratory Result Diagrams: 10/05/18 08:35 10/05/18 06:10 Laboratory results interpreted by me: 10/05/18 10/05/18 10/05/18 06:10 06:10 06:10 WBC 22.0 H MCV 99 H RDW 14.1 H Seg Neutrophils % Seg Neuts % (Manual) 41 L Lymphocytes % Lymphocytes % (Manual) 51 H Absolute Neutrophils Abs Neuts (Manual) 9.0 H Abs Lymphs (Manual) 11.2 H Absolute Monocytes PT 15.5 H Fibrinogen 500 H Fibrin Degrad Products Potassium 3.4 L Anion Gap 23 H BUN 6 L Glucose 241 H Lactic Acid Total Bilirubin 2.3 H Direct Bilirubin 0.9 H AST 102 H Alkaline Phosphatase 260 H Total Protein 9.0 H Urine Protein Urine Glucose (UA) Urine Ketones Urine Blood 10/05/18 10/05/18 10/05/18 06:30 06:55 08:35 WBC 18.2 H MCV RDW Seg Neutrophils % 83.5 H Seg Neuts % (Manual) Lymphocytes % 5.8 L Lymphocytes % (Manual) Absolute Neutrophils 15.2 H Abs Neuts (Manual) Abs Lymphs (Manual) Absolute Monocytes 1.9 H PT Fibrinogen Fibrin Degrad Products >40 H Potassium Anion Gap BUN Glucose Lactic Acid 10.5 H Total Bilirubin Direct Bilirubin AST Alkaline Phosphatase Total Protein Urine Protein Urine Glucose (UA) Urine Ketones Urine Blood 10/05/18 10:20 WBC MCV RDW Seg Neutrophils % Seg Neuts % (Manual) Lymphocytes % Lymphocytes % (Manual) Absolute Neutrophils Abs Neuts (Manual) Abs Lymphs (Manual) Absolute Monocytes PT Fibrinogen Fibrin Degrad Products Potassium Anion Gap BUN Glucose Lactic Acid Total Bilirubin Direct Bilirubin AST Alkaline Phosphatase Total Protein Urine Protein 30 H Urine Glucose (UA) >=500 H Urine Ketones TRACE H Urine Blood SMALL H Procedures - Intubation Nasotracheal Airway evaluation: Other - No oral pharyngeal anatomy could be visualized due to the severe angioedema Medications: Other - None this was done during an acute respiratory and cardiac arrest Intubation method: Nasotracheal End tidal CO2 confirmed: No Intubation Complications: No complications Notes: 10/05/18 11:27 The patient was nasotracheally intubated as we were preparing to do a crico- thyroidotomy. Older looking blood came up the endotracheal tube is soon is we bagged the patient through the tube. We did get good breath sounds bilaterally. The patient's blue face color turned to pink, and the pulse oximetry readings came up from the 60-70% range to 90%. CO2 confirmation was not done due to these other findings that did confirm good endotracheal tube placement. Chest x-ray was then done to show the location of the endotracheal tube tip and to see what the lungs look like. Critical Care Note - Critical Care Note Total time excluding time spent on procedures (mins): 90 Discharge - Discharge Clinical Impression: Angioedema due to angiotensin converting enzyme inhibitor (LAURA-I), Respiratory arrest before cardiac arrest, Pulmonary alveolar hemorrhage Condition: Poor Disposition: ADMITTED INPATIENT Admitting Provider: Hospitalist Unit Admitted: ICU Referrals: DIXIE BERRY MD [Primary Care Provider] - Follow up as needed Scribe Attestation: 10/05/18 08:21 I personally performed the services described in the documentation, reviewed and edited the documentation which was dictated to the scribe in my presence, and it accurately records my words and actions. I personally performed the services described in the documentation, reviewed and edited the documentation which was dictated to the scribe in my presence, and it accurately records my words and actions.
--- NOTE | 2018-10-09 07:49 | RADIOLOGY REPORT (SQ) ---
EXAM DESCRIPTION: XR CHEST 1 VIEW COMPLETED DATE/TME: 10/09/2018 06:00 CLINICAL HISTORY: 58 years Female, pna/resp failure COMPARISON: One day prior. NUMBER OF VIEWS/TECHNIQUE: 1/AP FINDINGS: Moderate mixed airspace and interstitial opacities. Normal cardiac silhouette size. No pneumothorax. Stable bony thorax. IMPRESSION: No significant change.
[2018-10-09] MEDS: ENOXAPARIN SODIUM INJ 40 MG/0.4 ML DISP.SYRIN SUBCUT SCH (09:48)
[2018-10-09] MEDS: PAROXETINE HCL 25 MG TAB.SR.24H PO SCH (09:48)
[2018-10-09] MEDS: FAMOTIDINE 20 MG TABLET PO SCH ×2 (09:48→21:55)
[2018-10-09] MEDS: METHYLPREDNISOLONE INJ 40 MG/1 ML SDV IV SCH ×2 (09:49→21:55)
[2018-10-09] MEDS: IPRATROPIUM/ALBUTEROL 0.5-2.5 MG/3 ML AMPUL NEB SCH ×3 (09:58→20:53)
[2018-10-09] MEDS ORDERED: OXYCODONE-ACETAMINOPHEN 5-325 MG TABLET PO PRN (09:59)
--- NOTE | 2018-10-09 10:18 | PDOC PROGRESS REPORT ---
Subjective Progress Note for:: 10/09/18 Subjective:: No adverse events overnight. Currently breathing comfortably and oxygenation stable on 4 L nasal cannula. No cough or shortness of breath. Still having some discomfort with deep breaths due to the chest compressions that she had previously. No fevers. She is being transferred to the stepdown unit. Reason For Visit: ANGIOEDEMA, RESPIRATORY DISTRESS Physical Exam Vital Signs: Temp Pulse Resp BP Pulse Ox 97.9 F 71 18 134/99 H 100 10/09/18 08:00 10/09/18 09:58 10/09/18 09:58 10/09/18 08:00 10/09/18 09:58 Intake & Output 10/08/18 10/09/18 10/10/18 06:59 06:59 06:59 Intake Total 1357 100 50 Output Total 3080 1160 Balance -1723 -1060 50 Weight 87.3 kg 84.8 kg General appearance: PRESENT: no acute distress, cooperative, disheveled Respiratory exam: PRESENT: chest wall tenderness, clear to auscultation daphnie, symmetrical, unlabored. ABSENT: accessory muscle use, crackles, rhonchi, tachypnea, wheezes Cardiovascular exam: PRESENT: RRR, +S1, +S2 Pulses: PRESENT: normal carotid pulses Vascular exam: PRESENT: normal capillary refill GI/Abdominal exam: PRESENT: normal bowel sounds, soft. ABSENT: distended, guarding, rebound, tenderness Extremities exam: ABSENT: clubbing, pedal edema Musculoskeletal exam: PRESENT: normal inspection. ABSENT: deformity Neurological exam: PRESENT: alert, awake, oriented to person, oriented to place, oriented to time, oriented to situation Psychiatric exam: PRESENT: appropriate affect, normal mood Skin exam: PRESENT: dry, warm Results Laboratory Results: 10/09/18 04:00 10/09/18 04:00 10/09/18 10/09/18 04:00 04:00 WBC 6.8 RBC 3.52 L Hgb 11.6 L Hct 33.9 L MCV 96 MCH 32.8 MCHC 34.1 RDW 13.8 Plt Count 158 Seg Neutrophils % 80.5 H Lymphocytes % 13.2 Monocytes % 6.3 Eosinophils % 0.0 Basophils % 0.0 Absolute Neutrophils 5.5 Absolute Lymphocytes 0.9 Absolute Monocytes 0.4 Absolute Eosinophils 0.0 Absolute Basophils 0.0 Sodium 141.0 Potassium 4.3 Chloride 103 Carbon Dioxide 29 Anion Gap 9 BUN 21 H Creatinine 0.59 Est GFR ( Amer) > 60 Est GFR (Non-Af Amer) > 60 Glucose 240 H Calcium 9.1 Magnesium 1.8 Total Bilirubin 1.4 H AST 73 H ALT 43 Alkaline Phosphatase 136 H Total Protein 6.3 Albumin 3.4 L Amylase 50 Lipase 89.2 10/07/18 06:15 Tracheal Aspirate Gram Stain - Final 10/07/18 06:15 Tracheal Aspirate Sputum Culture - Final Staphylococcus Aureus Normal Elissa Absent 10/05/18 10/05/18 10/06/18 06:10 06:10 03:49 Creatine Kinase 70 755 H CK-MB (CK-2) Troponin I 0.057 NT-Pro-B Natriuret Pep 10/06/18 10/06/18 10/07/18 03:49 16:20 04:02 Creatine Kinase 128 CK-MB (CK-2) 11.30 H Troponin I 0.172 0.091 NT-Pro-B Natriuret Pep 2210 H Impressions: Chest X-Ray 10/09/18 06:00 IMPRESSION: No significant change. Assessment & Plan - Diagnosis (1) Acute respiratory failure with hypoxia Is this a current diagnosis for this admission?: Yes Plan: Improving. Currently on 4 L nasal cannula, trending down from yesterday. We will continue to wean as tolerated until we can get her off oxygen. (2) Alcohol abuse Is this a current diagnosis for this admission?: Yes Plan: Currently no signs of withdrawal. We will continue with vitamin supplementation and monitoring for withdrawal symptoms. (3) Angioedema due to angiotensin converting enzyme inhibitor (LAURA-I) Is this a current diagnosis for this admission?: Yes Plan: Resolved. Successfully extubated. (4) Pneumonia Qualifiers: Pneumonia type: due to methicillin-sensitive Staphylococcus aureus (MSSA) Laterality: unspecified laterality Lung location: unspecified part of lung Qualified Code(s): J15.211 - Pneumonia due to Methicillin susceptible Staphylococcus aureus Is this a current diagnosis for this admission?: Yes Plan: Culture from tracheal suction was positive. Fortunately it is pansensitive. We will try to transition her to an antibiotic to treat this plus the E. coli in her urine. (5) UTI (urinary tract infection) Qualifiers: Urinary tract infection type: acute cystitis Hematuria presence: without hematuria Qualified Code(s): N30.00 - Acute cystitis without hematuria Is this a current diagnosis for this admission?: Yes Plan: Due to E. coli. As noted above, we will try to put her on one antibiotic that we will treat both her pneumonia and this E. coli in her urine. - Time Time Spent with patient: 25-34 minutes
[2018-10-09] MEDS: INSULIN GLARGINE,HUM.REC.ANLOG 300 UNIT/3 ML INSULN.PEN SUBCUT SCH ×2 (10:45→17:21)
[2018-10-09] MEDS: ATORVASTATIN CALCIUM 20 MG TABLET PO SCH (21:55)
--- NOTE | 2018-10-10 00:24 | XCELERA REPORT ---
[address] [address] Transthoracic Echocardiogram Report Name: FLACO JARA Age: 58 yrs Gender: Female : 1960 Patient Status: Inpatient Patient Location: ICU^606^A Study Date: 10/08/2018 10:38 AM Procedure: A two-dimensional transthoracic echocardiogram with color flow and Doppler was performed. The study was technically difficult with many images being suboptimal in quality. Reason For Study: cardiomegaly History: cardiomegaly. Ordering Physician: AZUL DANIELS Performed By: Paola Guerrier Interpretation Summary The left ventricle is normal in size. There is normal left ventricular wall thickness. LV EF is 65% The left ventricular ejection fraction is normal. Doppler measurements suggest impaired left ventricular relaxation, which is associated with grade I/IV or mild diastolic dysfunction The left ventricular wall motion is normal. There is no thrombus. The right ventricle is grossly normal size. The right ventricle is not well visualized secondary to technical limitations The right atrium is normal. The left atrial size is normal. There is no evidence of mitral valve prolapse. There are no obvious valvular vegetations related to endocarditis seen on transthoracic echo. A transesophageal echo is suggested if clinically indicated There is no mitral valve stenosis. There is a mild amount of mitral regurgitation There is no aortic valvular vegetation. There is no aortic valve stenosis There is no LVOT obstruction. No aortic regurgitation is present. There is no tricuspid stenosis. There is a mild amount of tricuspid regurgitation There is mild pulmonary hypertension by echo RVSP is 40 mm of Hg , with RA mean of 10. There is no pericardial effusion. MMode/2D Measurements & Calculations RVDd: 2.8 cm LVIDd: 5.7 cm FS: 38.9 % Ao root diam: IVSd: 0.85 cm LVIDs: 3.5 cm EDV(Teich): 3.2 cm LVPWd: 1.1 cm 156.9 ml Ao root area: ESV(Teich): 8.3 cm2 49.2 ml EF(Teich): 68.6 % EDV(MOD-sp4): SV(MOD-sp4): 126.8 ml 83.2 ml ESV(MOD-sp4): 43.6 ml EF(MOD-sp4): 65.6 % Doppler Measurements & Calculations MV E max blanca: MV dec slope: Ao V2 max: LV V1 max P.7 cm/sec 659.3 cm/sec2 152.8 cm/sec 5.3 mmHg MV A max blanca: MV dec time: 0.17 secAo max PG: LV V1 max: 128.4 cm/sec 9.3 mmHg 115.3 cm/sec MV E/A: 0.89 LV dP/dt: 2847 mmHg/s PA V2 max: TR max blanca: 120.7 cm/sec 265.5 cm/sec PA max P.8 mmHg TR max P.2 mmHg Left Ventricle The left ventricle is normal in size. There is normal left ventricular wall thickness. LV EF is 65%. The left ventricular ejection fraction is normal. Doppler measurements suggest impaired left ventricular relaxation, which is associated with grade I/IV or mild diastolic dysfunction. The left ventricular wall motion is normal. There is no thrombus. Right Ventricle The right ventricle is grossly normal size. The right ventricle is not well visualized secondary to technical limitations. Atria The right atrium is normal. The left atrial size is normal. Mitral Valve There is no evidence of mitral valve prolapse. There are no obvious valvular vegetations related to endocarditis seen on transthoracic echo. A transesophageal echo is suggested if clinically indicated. There is no mitral valve stenosis. There is a mild amount of mitral regurgitation. Aortic Valve There is no aortic valvular vegetation. There is no aortic valve stenosis. There is no LVOT obstruction. No aortic regurgitation is present. Tricuspid Valve There is no tricuspid stenosis. There is a mild amount of tricuspid regurgitation. There is mild pulmonary hypertension by echo. RVSP is 40 mm of Hg , with RA mean of 10. Pulmonic Valve There is no pulmonic valvular stenosis. There is no pulmonic valvular regurgitation. Effusions There is no pericardial effusion. : AZUL DANIELS > Celia Alvarez
[2018-10-10] MEDS: OXYCODONE-ACETAMINOPHEN 5-325 MG TABLET PO PRN ×5 (01:41→21:45)
[2018-10-10] MEDS: INSULIN REG, HUMAN 100 UNIT/ML 3 ML VIAL (PYX) SUBCUT SCH ×3 (05:48→22:32)
[2018-10-10] MEDS: MEROPENEM 1 GM in NORMAL SALINE 50 ML IV SCH ×2 (05:48→13:39)
[2018-10-10 05:49] LABS: ARTERIAL BLOOD BASE EXCESS 2.8 mmol/L; ARTERIAL BLOOD H2CO3 1.06 mmol/L (1.05-1.35); ARTERIAL BLOOD O2 SATURATION 97.4 % (94-98); ARTERIAL BLOOD PCO2 35.3 mmHg (35-45); ARTERIAL BLOOD PH 7.49 (7.35-7.45); ARTERIAL BLOOD PO2 89.3 mmHg (80-100); ARTERIAL BLOOD TOTAL CO2 27.1 mmol/L (21-25)
[2018-10-10] MEDS: LEVOTHYROXINE SODIUM 0.075 MG TABLET PO SCH (05:49)
[2018-10-10 05:54] LABS: ARTERIAL BLOOD FIO2 2.5LPM
[2018-10-10 06:39] LABS: ABSOLUTE MONOCYTES (AUTO) 0.4 10^3/uL (0.1-1.4); ABSOLUTE NEUT (AUTO) 5.1 10^3/uL (1.7-8.2); BASOPHILS % (AUTO) 0.1 % (0-2); EOSINOPHILS % (AUTO) 0.3 % (0-6); HEMATOCRIT 33.1 % (36.0-47.0); HEMOGLOBIN 11.4 g/dL (12.0-15.5); LYMPHOCYTES % (AUTO) 15.4 % (13-45); MEAN CORPUSCULAR HGB CONC 34.4 g/dL (32.0-36.0); MEAN CORPUSCULAR VOLUME 96 fl (80-97); MONOCYTES % (AUTO) 6.6 % (3-13); PLATELET COUNT 154 10^3/uL (150-450); RED BLOOD COUNT 3.45 10^6/uL (3.72-5.28); RED CELL DISTRIBUTION WIDTH 13.5 % (11.5-14.0); SEGMENTED NEUTROPHILS % (AUTO) 77.6 % (42-78); TOTAL CELLS COUNTED % (AUTO) 100 %; WHITE BLOOD COUNT 6.6 10^3/uL (4.0-10.5)
[2018-10-10 06:55] LABS: ALANINE AMINOTRANSFERASE 50 U/L (9-52); ALBUMIN 3.2 g/dL (3.5-5.0); ALKALINE PHOSPHATASE 133 U/L (38-126); ANION GAP 11 (5-19); ASPARTATE AMINO TRANSFERASE 91 U/L (14-36); BILIRUBIN,DIRECT 0.7 mg/dL (0.0-0.4); BILIRUBIN,TOTAL 1.9 mg/dL (0.2-1.3); BLOOD UREA NITROGEN 17 mg/dL (7-20); CALCIUM 8.8 mg/dL (8.4-10.2); CARBON DIOXIDE 27 mmol/L (22-30); CHLORIDE 103 mmol/L (98-107); GLUCOSE 192 mg/dL (75-110); POTASSIUM 3.8 mmol/L (3.6-5.0); SODIUM 140.5 mmol/L (137-145); TOTAL PROTEIN 5.9 g/dL (6.3-8.2)
[2018-10-10] MEDS: LORAZEPAM INJ 2 MG/1 ML VIAL IV PRN ×4 (08:03→22:35)
[2018-10-10] MEDS: IPRATROPIUM/ALBUTEROL 0.5-2.5 MG/3 ML AMPUL NEB SCH ×3 (08:18→20:32)
--- NOTE | 2018-10-10 09:14 | RADIOLOGY REPORT (SQ) ---
EXAM DESCRIPTION: CHEST SINGLE VIEW COMPLETED DATE/TIME: 10/10/2018 9:02 am REASON FOR STUDY: pna COMPARISON: 10/09/2018, 10/08/2018, 10/05/2018 EXAM PARAMETERS: NUMBER OF VIEWS: One view. TECHNIQUE: Single frontal radiographic view of the chest acquired. RADIATION DOSE: NA LIMITATIONS: None. FINDINGS: LUNGS AND PLEURA: Partial clearing of the bilateral diffuse airspace disease compared to p revious studies. No pleural effusion. No pneumothorax. MEDIASTINUM AND HILAR STRUCTURES: No masses. Contour normal. HEART AND VASCULAR STRUCTURES: Heart normal in size. Normal vasculature. BONES: No acute findings. HARDWARE: None in the chest. OTHER: No other significant finding. IMPRESSION: Partial clearing of the diffuse bilateral alveolar infiltrates compared to previous stud ies TECHNICAL DOCUMENTATION: JOB ID: [id number] [employer]- All Rights Reserved Reading location - IP/workstation name: [email or web address]
[2018-10-10] MEDS: METHYLPREDNISOLONE INJ 40 MG/1 ML SDV IV SCH ×2 (09:38→21:44)
[2018-10-10] MEDS: PAROXETINE HCL 25 MG TAB.SR.24H PO SCH (09:38)
[2018-10-10] MEDS: FAMOTIDINE 20 MG TABLET PO SCH ×2 (09:38→22:21)
[2018-10-10] MEDS: ENOXAPARIN SODIUM INJ 40 MG/0.4 ML DISP.SYRIN SUBCUT SCH (09:38)
[2018-10-10] MEDS: INSULIN GLARGINE,HUM.REC.ANLOG 300 UNIT/3 ML INSULN.PEN SUBCUT SCH ×2 (09:38→18:20)
--- NOTE | 2018-10-10 17:25 | PDOC PROGRESS REPORT ---
Subjective Progress Note for:: 10/10/18 Subjective:: No adverse events overnight. No new complaints. Vital signs been stable. She has gotten up to get cleaned up on about 2 L of oxygen and has been breathing fairly well on that. She said it still hurts when she takes a deep breath. Reason For Visit: ANGIOEDEMA, RESPIRATORY DISTRESS Physical Exam Vital Signs: Temp Pulse Resp BP Pulse Ox 98.4 F 75 16 127/66 H 92 10/10/18 10:46 10/10/18 14:03 10/10/18 14:03 10/10/18 10:46 10/10/18 14:03 Intake & Output 10/09/18 10/10/18 10/11/18 06:59 06:59 06:59 Intake Total 100 1142 325 Output Total 1160 1300 500 Balance -1060 -158 -175 Weight 84.8 kg 83 kg General appearance: PRESENT: no acute distress, cooperative, disheveled Respiratory exam: PRESENT: chest wall tenderness, clear to auscultation daphnie, symmetrical, unlabored. ABSENT: accessory muscle use, crackles, rhonchi, tachypnea, wheezes Cardiovascular exam: PRESENT: RRR, +S1, +S2 Pulses: PRESENT: normal carotid pulses Vascular exam: PRESENT: normal capillary refill GI/Abdominal exam: PRESENT: normal bowel sounds, soft. ABSENT: distended, guarding, rebound, tenderness Extremities exam: ABSENT: clubbing, pedal edema Musculoskeletal exam: PRESENT: normal inspection. ABSENT: deformity Neurological exam: PRESENT: alert, awake, oriented to person, oriented to place, oriented to time, oriented to situation Psychiatric exam: PRESENT: appropriate affect, normal mood Skin exam: PRESENT: dry, warm Results Laboratory Results: 10/10/18 05:30 10/10/18 05:30 10/10/18 10/10/18 10/10/18 05:30 05:30 05:38 WBC 6.6 RBC 3.45 L Hgb 11.4 L Hct 33.1 L MCV 96 MCH 33.0 MCHC 34.4 RDW 13.5 Plt Count 154 Seg Neutrophils % 77.6 Lymphocytes % 15.4 Monocytes % 6.6 Eosinophils % 0.3 Basophils % 0.1 Absolute Neutrophils 5.1 Absolute Lymphocytes 1.0 Absolute Monocytes 0.4 Absolute Eosinophils 0.0 Absolute Basophils 0.0 Carbonic Acid 1.06 HCO3/H2CO3 Ratio 24:1 ABG pH 7.49 H ABG pCO2 35.3 ABG pO2 89.3 ABG HCO3 26.0 H ABG O2 Saturation 97.4 ABG Base Excess 2.8 FiO2 2.5LPM Sodium 140.5 Potassium 3.8 Chloride 103 Carbon Dioxide 27 Anion Gap 11 BUN 17 Creatinine 0.49 L Est GFR ( Amer) > 60 Est GFR (Non-Af Amer) > 60 Glucose 192 H Calcium 8.8 Magnesium 1.7 Total Bilirubin 1.9 H AST 91 H ALT 50 Alkaline Phosphatase 133 H Total Protein 5.9 L Albumin 3.2 L 10/05/18 10/05/18 10/06/18 06:10 06:10 03:49 Creatine Kinase 70 755 H CK-MB (CK-2) Troponin I 0.057 NT-Pro-B Natriuret Pep 10/06/18 10/06/18 10/07/18 03:49 16:20 04:02 Creatine Kinase 128 CK-MB (CK-2) 11.30 H Troponin I 0.172 0.091 NT-Pro-B Natriuret Pep 2210 H Impressions: Chest X-Ray 10/10/18 06:00 IMPRESSION: Partial clearing of the diffuse bilateral alveolar infiltrates compared to previous studies Assessment & Plan - Diagnosis (1) Acute respiratory failure with hypoxia Is this a current diagnosis for this admission?: Yes Plan: Improving. Currently on 2 L nasal cannula. We will continue to wean as tolerated until we can get her off oxygen. Because of her resuscitation, several ribs were broken, and she is having a lot of discomfort with deep breathing, but her tolerance is improving. If she is off oxygen and is able to ambulate tomorrow, will likely be able to discharge her home at that time. (2) Alcohol abuse Is this a current diagnosis for this admission?: Yes Plan: Currently no signs of withdrawal. We will continue with vitamin supplementation and monitoring for withdrawal symptoms. (3) Angioedema due to angiotensin converting enzyme inhibitor (LAURA-I) Is this a current diagnosis for this admission?: Yes Plan: Resolved. Successfully extubated. (4) Pneumonia Qualifiers: Pneumonia type: due to methicillin-sensitive Staphylococcus aureus (MSSA) Laterality: unspecified laterality Lung location: unspecified part of lung Qualified Code(s): J15.211 - Pneumonia due to Methicillin susceptible Staphylococcus aureus Is this a current diagnosis for this admission?: Yes Plan: Culture from tracheal suction was positive. Fortunately it is pansensitive. Will transition to Vantin. (5) UTI (urinary tract infection) Qualifiers: Urinary tract infection type: acute cystitis Hematuria presence: without hematuria Qualified Code(s): N30.00 - Acute cystitis without hematuria Is this a current diagnosis for this admission?: Yes Plan: Due to E. coli. Will transition to Vantin. - Time Time Spent with patient: 25-34 minutes
[2018-10-10] MEDS ORDERED: INSULIN REG, HUMAN 100 UNIT/ML 3 ML VIAL (PYX) SUBCUT ONE (18:30)
[2018-10-10] MEDS ORDERED: IBUPROFEN 600 MG TABLET PO PRN (18:40)
[2018-10-10] MEDS: ATORVASTATIN CALCIUM 20 MG TABLET PO SCH (21:44)
[2018-10-10] MEDS: CEFPODOXIME 200 MG TABLET PO SCH (21:46)
[2018-10-11] MEDS: OXYCODONE-ACETAMINOPHEN 5-325 MG TABLET PO PRN ×2 (03:18→09:24)
[2018-10-11] MEDS: LEVOTHYROXINE SODIUM 0.075 MG TABLET PO SCH (06:11)
[2018-10-11] MEDS: LORAZEPAM INJ 2 MG/1 ML VIAL IV PRN ×2 (06:14→09:53)
[2018-10-11 07:52] LABS: ARTERIAL BLOOD BASE EXCESS 4.9 mmol/L; ARTERIAL BLOOD FIO2 2L; ARTERIAL BLOOD H2CO3 1.15 mmol/L (1.05-1.35); ARTERIAL BLOOD HCO3 28.5 mmol/L (20-24); ARTERIAL BLOOD O2 SATURATION 97.8 % (94-98); ARTERIAL BLOOD PCO2 38.3 mmHg (35-45); ARTERIAL BLOOD PH 7.49 (7.35-7.45); ARTERIAL BLOOD PO2 97.2 mmHg (80-100); ARTERIAL BLOOD TOTAL CO2 29.6 mmol/L (21-25)
[2018-10-11] MEDS: IPRATROPIUM/ALBUTEROL 0.5-2.5 MG/3 ML AMPUL NEB SCH (09:04)
[2018-10-11] MEDS: FAMOTIDINE 20 MG TABLET PO SCH (09:26)
[2018-10-11] MEDS: PAROXETINE HCL 25 MG TAB.SR.24H PO SCH (09:26)
[2018-10-11] MEDS: INSULIN REG, HUMAN 100 UNIT/ML 3 ML VIAL (PYX) SUBCUT SCH ×2 (09:27→12:12)
[2018-10-11] MEDS: ENOXAPARIN SODIUM INJ 40 MG/0.4 ML DISP.SYRIN SUBCUT SCH (09:27)
[2018-10-11] MEDS: METHYLPREDNISOLONE INJ 40 MG/1 ML SDV IV SCH (09:27)
[2018-10-11] MEDS: INSULIN GLARGINE,HUM.REC.ANLOG 300 UNIT/3 ML INSULN.PEN SUBCUT SCH (09:28)
[2018-10-11] MEDS: CEFPODOXIME 200 MG TABLET PO SCH (09:28)
--- NOTE | 2018-10-11 11:03 | PDOC PROGRESS REPORT ---
Subjective Progress Note for:: 10/09/18 Subjective:: Stable doing well Reason For Visit: ANGIOEDEMA, RESPIRATORY DISTRESS Physical Exam Vital Signs: Temp Pulse Resp BP Pulse Ox 97.9 F 64 17 134/99 H 97 10/09/18 08:00 10/09/18 08:00 10/09/18 08:00 10/09/18 08:00 10/09/18 08:00 Intake & Output 10/08/18 10/09/18 10/10/18 06:59 06:59 06:59 Intake Total 1357 100 50 Output Total 3080 1160 Balance -1723 -1060 50 Weight 87.3 kg 84.8 kg General appearance: PRESENT: no acute distress, cooperative, well-developed, well-nourished Head exam: PRESENT: atraumatic, normocephalic Eye exam: PRESENT: conjunctiva pale, EOMI. ABSENT: nystagmus, periorbital swelling, scleral icterus Mouth exam: PRESENT: moist, neck supple, tongue midline Neck exam: ABSENT: carotid bruit, full ROM, JVD, lymphadenopathy, meningismus, tenderness, thyromegaly, tracheal deviation, tracheostomy, other Respiratory exam: PRESENT: decreased breath sounds, prolonged expiratory phas, rhonchi, symmetrical, unlabored. ABSENT: rales, retraction, stridor, tachypnea Cardiovascular exam: PRESENT: RRR, +S1, +S2 Pulses: PRESENT: normal radial pulses GI/Abdominal exam: PRESENT: soft. ABSENT: tenderness Extremities exam: ABSENT: calf tenderness, clubbing, joint swelling, pedal edema Musculoskeletal exam: ABSENT: deformity, dislocation Neurological exam: PRESENT: alert, awake Psychiatric exam: PRESENT: appropriate affect Skin exam: PRESENT: dry, warm Results Laboratory Results: 10/09/18 04:00 10/09/18 04:00 10/09/18 10/09/18 04:00 04:00 WBC 6.8 RBC 3.52 L Hgb 11.6 L Hct 33.9 L MCV 96 MCH 32.8 MCHC 34.1 RDW 13.8 Plt Count 158 Seg Neutrophils % 80.5 H Lymphocytes % 13.2 Monocytes % 6.3 Eosinophils % 0.0 Basophils % 0.0 Absolute Neutrophils 5.5 Absolute Lymphocytes 0.9 Absolute Monocytes 0.4 Absolute Eosinophils 0.0 Absolute Basophils 0.0 Sodium 141.0 Potassium 4.3 Chloride 103 Carbon Dioxide 29 Anion Gap 9 BUN 21 H Creatinine 0.59 Est GFR ( Amer) > 60 Est GFR (Non-Af Amer) > 60 Glucose 240 H Calcium 9.1 Magnesium 1.8 Total Bilirubin 1.4 H AST 73 H ALT 43 Alkaline Phosphatase 136 H Total Protein 6.3 Albumin 3.4 L Amylase 50 Lipase 89.2 10/07/18 06:15 Tracheal Aspirate Gram Stain - Final 10/07/18 06:15 Tracheal Aspirate Sputum Culture - Final Staphylococcus Aureus Normal Elissa Absent 10/05/18 10/05/18 10/06/18 06:10 06:10 03:49 Creatine Kinase 70 755 H CK-MB (CK-2) Troponin I 0.057 NT-Pro-B Natriuret Pep 10/06/18 10/06/18 10/07/18 03:49 16:20 04:02 Creatine Kinase 128 CK-MB (CK-2) 11.30 H Troponin I 0.172 0.091 NT-Pro-B Natriuret Pep 2210 H Impressions: Chest X-Ray 10/09/18 06:00 IMPRESSION: No significant change. Assessment & Plan - Diagnosis (1) Acute respiratory failure with hypoxia Is this a current diagnosis for this admission?: Yes Plan: Continues to be stable (2) Alcohol abuse Is this a current diagnosis for this admission?: Yes Plan: DT precautions (3) Angioedema due to angiotensin converting enzyme inhibitor (LAURA-I) Is this a current diagnosis for this admission?: No (4) Pulmonary alveolar hemorrhage Is this a current diagnosis for this admission?: Yes Plan: this would account for abnormal chest x-ray
[2018-10-11 12:54] VITALS: BP 134/99
--- NOTE | 2018-10-11 16:16 | PDOC DISCHARGE SUMMARY ---
General - Admit/Disc Date/PCP Admission Date/Primary Care Provider: 10/05/18 12:05 DIXIE BERRY MD Discharge Date: 10/11/18 - Discharge Diagnosis (1) Acute respiratory failure with hypoxia Is this a current diagnosis for this admission?: Yes Summary: She had significant airway obstruction due to angioedema from her lisinopril. This was withdrawn and she was given some steroids and Benadryl. She was able to be successfully extubated. She was hypoxemic for a few days we were able to wean her off oxygen completely by time of discharge. (2) Alcohol abuse Is this a current diagnosis for this admission?: Yes Summary: She is not showing any withdrawal symptoms here. Strongly encouraged the cutting back on her drinking or absence altogether. (3) Angioedema due to angiotensin converting enzyme inhibitor (LAURA-I) Is this a current diagnosis for this admission?: No Summary: As noted above. Also recommended that in addition to not take an LAURA inhibitor ever again, that she also not take any ARB's. (4) Pneumonia Is this a current diagnosis for this admission?: Yes Summary: She was intubated, tracheal aspirate was done. It turned out to be MSSA. She will finish a course of Vantin as an outpatient. (5) UTI (urinary tract infection) Is this a current diagnosis for this admission?: Yes Summary: Turned out to be a pansensitive E. coli. She will finish a course of Vantin as an outpatient. - Additional Information Discharge Diet: Diabetic Discharge Activity: Balance Activity w/Rest, Slowly Increase Activity Prescriptions: Cefpodoxime Proxetil [Vantin 200 mg Tablet] 200 mg PO Q12 #8 tablet Oxycodone HCl/Acetaminophen [Percocet 5-325 mg Tablet] 1.5 tab PO Q6HP PRN #20 tablet PRN Reason: Home Medications: Atorvastatin Calcium [Lipitor 20 mg Tablet] 20 mg PO QHS 10/05/18 Dextroamphetamine/Amphetamine [Adderall XR 20 mg Capsule] 20 mg PO DAILY 10/05/18 Insulin Glargine,Hum.rec.anlog [Lantus Insulin 100 Unit/mL] 35 units SQ DAILY 10/05/18 Levothyroxine Sodium 75 mcg PO Q6AM 10/05/18 Paroxetine HCl [Paxil Cr 25 mg Tab.sr] 50 mg PO DAILY 10/05/18 Cefpodoxime Proxetil [Vantin 200 mg Tablet] 200 mg PO Q12 #8 tablet 10/11/18 Ibuprofen [Motrin 600 mg Tablet] 600 mg PO Q6HP PRN tablet 10/11/18 Oxycodone HCl/Acetaminophen [Percocet 5-325 mg Tablet] 1.5 tab PO Q6HP PRN #20 tablet 10/11/18 History of Present Illness History of Present Illness: FLACO JARA is a 58 year old female with history of depression, HTN, and alcohol abuse, who presents to the ED with lip and tongue swelling in addition to difficulty breathing. History was obtained from patient's (ex?) who brought her to the ED. Pre report, he saw her yesterday evening and was in good health. He received a call around 2AM this morning and noted that she was having trouble talking due to facial swelling which started a few hours ago. He went ov er to her house to check up on. Patient initially refused to come to the ED and took Benadryl. Around 6AM, patient's breathing became much worse and she was brought to the ED, where she rapidly deteriorated on arrival. Due to distress and turning blue, she was intubated nasotracheally with a 6.0 endotracheal tube. Per ED physician, she went into an asystolic arrest with no pulse. Chest compressions were started and NET was placed. It was noted that she had dark bloody discharge on suction. ROSC was acheived Propofol drip was started to sedate her. Of note, patient noted similar facial swelling and difficultly breathing 2-3 months ago. She took Benadryl, with improvement. She never reported this episode to her PCP. She was Lisinopril at that times and has continued to take lisinopril. At time of my evaluation in the ED, patient was clinically better. She required less sedation and was answering some commands. Admitted to hospitalist service to the MICU. Hospital Course Hospital Course: Lisinopril was obviously discontinued and she received steroids and antihistamines in addition to airway and ventilatory support. She improved rather quickly. While she was intubated tracheal aspirate was done and it grew out MSSA. Urine was also checked and grown a pansensitive E. coli. Vantin was chosen to be able to treat both processes. She did not show any signs of alcohol withdrawal while here. After she was extubated, she had a high oxygen requirement for several days but she was weaned down to room air and was ambulating independently on room air. Her main complaint at the time she left. Fact that her chest hurt whenever she can really deep breaths due to the fact that she had to have CPR. This also improved and I gave her a small amount of pain medication and recommended that she alternate it with ibuprofen. She verbalized understanding. She will follow-up with her primary care provider Dr. Montgomery in 3-5 days. Her labs and examination were reassuring and she was discharged today in good condition. Physical Exam Vital Signs: Temp Pulse Resp BP Pulse Ox 97.5 F 72 16 134/99 H 98 10/11/18 12:52 10/11/18 12:52 10/11/18 12:52 10/11/18 12:52 10/11/18 12:52 Intake & Output 10/10/18 10/11/18 10/12/18 06:59 06:59 06:59 Intake Total 1142 768 Output Total 1300 500 Balance -158 268 Weight 83 kg 82.8 kg General appearance: PRESENT: no acute distress, cooperative, disheveled Respiratory exam: PRESENT: chest wall tenderness, clear to auscultation daphnie, symmetrical, unlabored. ABSENT: accessory muscle use, crackles, rhonchi, tachypnea, wheezes Cardiovascular exam: PRESENT: RRR, +S1, +S2 Pulses: PRESENT: normal carotid pulses Vascular exam: PRESENT: normal capillary refill GI/Abdominal exam: PRESENT: normal bowel sounds, soft. ABSENT: distended, guarding, rebound, tenderness Extremities exam: ABSENT: clubbing, pedal edema Musculoskeletal exam: PRESENT: normal inspection. ABSENT: deformity Neurological exam: PRESENT: alert, awake, oriented to person, oriented to place, oriented to time, oriented to situation Psychiatric exam: PRESENT: appropriate affect, normal mood Skin exam: PRESENT: dry, warm Results Laboratory Results: 10/10/18 05:30 10/10/18 05:30 10/11/18 06:35 Carbonic Acid 1.15 HCO3/H2CO3 Ratio 24:1 ABG pH 7.49 H ABG pCO2 38.3 ABG pO2 97.2 ABG HCO3 28.5 H ABG O2 Saturation 97.8 ABG Base Excess 4.9 FiO2 2L 10/05/18 10/05/18 10/06/18 06:10 06:10 03:49 Creatine Kinase 70 755 H CK-MB (CK-2) Troponin I 0.057 NT-Pro-B Natriuret Pep 10/06/18 10/06/18 10/07/18 03:49 16:20 04:02 Creatine Kinase 128 CK-MB (CK-2) 11.30 H Troponin I 0.172 0.091 NT-Pro-B Natriuret Pep 2210 H Impressions: Chest X-Ray 10/10/18 06:00 IMPRESSION: Partial clearing of the diffuse bilateral alveolar infiltrates compared to previous studies Qualifiers - * PATIENT BEING DISCHARGED WITH ANY OF THE FOLLOWING DIAGNOSIS: No
== END 2018-10-11 13:15 | disposition home health service (06) | DRG 208 ==
LOC: ER 06:02 → EH 12:05 → ICU 14:26 → 3W 10-09 10:19
PROVIDERS: ADMIT Internal Medicine; ATTEND Internal Medicine
PROC: 5A1945Z Respiratory Ventilation, 24-96 Consecutive Hours (ICD-10-PCS; principal; 2018-10-05)
PROC: 0BH17EZ Insertion of Endotracheal Airway into Trachea, Via Natural or Artificial Opening (ICD-10-PCS; 2018-10-05)
PROC: 5A12012 Performance of Cardiac Output, Single, Manual (ICD-10-PCS; 2018-10-05)
PROC: 30283B1 Transfusion of Nonautologous 4-Factor Prothrombin Complex Concentrate into Vein, Percutaneous Approach (ICD-10-PCS; 2018-10-05)
DX: J96.01 Acute respiratory failure with hypoxia (principal); J15.211 Pneumonia due to Methicillin susceptible Staphylococcus aureus; I46.8 Cardiac arrest due to other underlying condition; R04.89 Hemorrhage from other sites in respiratory passages; N39.0 Urinary tract infection, site not specified; T78.3XXA Angioneurotic edema, initial encounter; T44.5X5A Adverse effect of predominantly beta-adrenoreceptor agonists, initial encounter; Y92.009 Unspecified place in unspecified non-institutional (private) residence as the place of occurrence of the external cause; F10.10 Alcohol abuse, uncomplicated; E11.9 Type 2 diabetes mellitus without complications; Z79.4 Long term (current) use of insulin; R79.89 Other specified abnormal findings of blood chemistry; F41.9 Anxiety disorder, unspecified; B96.20 Unspecified Escherichia coli [E. coli] as the cause of diseases classified elsewhere; Z78.1 Physical restraint status; I10 Essential (primary) hypertension; Z90.49 Acquired absence of other specified parts of digestive tract; G80.9 Cerebral palsy, unspecified; M13.871 Other specified arthritis, right ankle and foot; Z87.891 Personal history of nicotine dependence
CPT/HCPCS: 36415; 36430; 36600; 71045; 80053; 80074; 81001; 82150; 82550; 82553; 82803; 82962; 83036; 83605; 83690; 83735; 83880; 84484; 85025; 85027; 85362; 85384; 85610; 85730; 86900; 86901; 87070; 87077; 87086; 87088; 87186; 87205; 93005; 93010; 93306; 94002; 94003; 94640; 94660; 96361; 96374; 99291; 99292; J0171; J1100; J1200; J1650; J1815; J1940; J2060; J2185; J2250; J2704; J2920; J2930; J3010; J3475; J3480; J3490; J7030; J7620; P9017; S0164

== ENCOUNTER 2019-08-10 05:16 | Emergency (ER) | payer BC ==
[2019-08-10 07:52] LABS: ABSOLUTE EOSINOPHILS # (AUTO) 0.2 10^3/uL (0.0-0.6); ABSOLUTE LYMPHOCYTES (AUTO) 1.5 10^3/uL (0.5-4.7); ABSOLUTE MONOCYTES (AUTO) 0.6 10^3/uL (0.1-1.4); ABSOLUTE NEUT (AUTO) 5.2 10^3/uL (1.7-8.2); BASOPHILS % (AUTO) 0.6 % (0-2); EOSINOPHILS % (AUTO) 2.6 % (0-6); HEMATOCRIT 26.4 % (36.0-47.0); LYMPHOCYTES % (AUTO) 19.9 % (13-45); MEAN CORPUSCULAR HEMOGLOBIN 31.4 pg (27.0-33.4); MEAN CORPUSCULAR HGB CONC 33.9 g/dL (32.0-36.0); MEAN CORPUSCULAR VOLUME 93 fl (80-97); PLATELET COUNT 232 10^3/uL (150-450); RED BLOOD COUNT 2.86 10^6/uL (3.72-5.28); RED CELL DISTRIBUTION WIDTH 13.2 % (11.5-14.0); SEGMENTED NEUTROPHILS % (AUTO) 68.9 % (42-78); TOTAL CELLS COUNTED % (AUTO) 100 %; WHITE BLOOD COUNT 7.5 10^3/uL (4.0-10.5)
[2019-08-10 07:56] LABS: APPEARANCE,URINE SLIGHTLY-CLOUDY; BILIRUBIN,URINE NEGATIVE (NEGATIVE); COLOR,URINE AMBER; GLUCOSE, URINE NEGATIVE (NEGATIVE); KETONES,URINE NEGATIVE (NEGATIVE); LEUKOCYTE ESTERASE,URINE NEGATIVE (NEGATIVE); NITRITE,URINE NEGATIVE (NEGATIVE); PROTEIN,URINE NEGATIVE (NEGATIVE); URINE SPECIFIC GRAVITY 1.014
[2019-08-10 08:01] LABS: ALKALINE PHOSPHATASE 212 U/L (38-126); ANION GAP 10 (5-19); ASPARTATE AMINO TRANSFERASE 57 U/L (14-36); BILIRUBIN,TOTAL 1.5 mg/dL (0.2-1.3); BLOOD UREA NITROGEN 13 mg/dL (7-20); CALCIUM 8.9 mg/dL (8.4-10.2); CARBON DIOXIDE 24 mmol/L (22-30); CHLORIDE 105 mmol/L (98-107); GLUCOSE 253 mg/dL (75-110); POTASSIUM 3.7 mmol/L (3.6-5.0); TOTAL PROTEIN 7.3 g/dL (6.3-8.2)
[2019-08-10] MEDS ORDERED: MORPHINE SULFATE 10 MG/ML INJ IM ONE (08:57)
[2019-08-10] MEDS ORDERED: ONDANSETRON 4 MG TAB.RAPDIS PO ONE (08:58)
--- NOTE | 2019-08-10 09:56 | ER Document Report ---
ED General - General Chief Complaint: Abdominal Swelling Stated Complaint: ABDOMINAL PAIN Time Seen by Provider: 08/10/19 07:53 Primary Care Provider: DELMIS ISBELL MD [Primary Care Provider] - Follow up as needed TRAVEL OUTSIDE OF THE [place] IN LAST 30 DAYS: No - HPI Notes: Patient is a 59-year-old female with a known history of liver disease, secondary to alcoholic cirrhosis, who presents to the emergency department for evaluation of upper abdominal pain. She states this started about 5:00 this morning. She described it as sharp and stabbing. It is colicky in nature, nothing seems to make it better or worse. She states she did have some mild passing nausea but no emesis. Normal bowel movements. Normal urination. She states her appetite is normal as well. She denies any fevers or chills. She states she has had some similar pain in the past, believes she needs to have a paracentesis. She is had multiple paracenteses in the past. - Related Data Allergies/Adverse Reactions: lisinopril Allergy (Severe, Verified 10/11/18 14:00) Angioneurotic Edema LAURA Inhibitors Allergy (Verified 10/11/18 14:00) Hair Dye Allergy (Uncoded 03/14/17 08:37) Home Medications: Ursodiol, Cipro, Lantus, Paxil, Lasix, potassium Past Medical History - General Information source: Patient - Social History Smoking Status: Never Smoker Frequency of alcohol use: Heavy - Quit drinking in May 2019 Family History: Reviewed & Not Pertinent Patient has suicidal ideation: No Patient has homicidal ideation: No - Past Medical History Cardiac Medical History: Reports: Hx Hypercholesterolemia, Hx Hypertension - Lisinopril Denies: Hx Coronary Artery Disease, Hx Heart Attack Pulmonary Medical History: Reports: Hx Bronchitis Denies: Hx Asthma, Hx COPD, Hx Pneumonia Neurological Medical History: Denies: Hx Cerebrovascular Accident, Hx Seizures Endocrine Medical History: Reports: Hx Diabetes Mellitus Type 2 Renal/ Medical History: Denies: Hx Peritoneal Dialysis GI Medical History: Reports: Hx Cirrhosis, Hx Liver Failure Musculoskeletal Medical History: Reports Hx Arthritis - R FOOT Psychiatric Medical History: Reports: Hx Depression Past Surgical History: Reports: Hx Cholecystectomy, Hx Orthopedic Surgery - right foot, low back, multiple surgeries to the right lower extremity - Immunizations Immunizations up to date: Yes Hx Diphtheria, Pertussis, Tetanus Vaccination: Yes Review of Systems - Review of Systems Constitutional: No symptoms reported EENT: No symptoms reported Cardiovascular: No symptoms reported Respiratory: No symptoms reported Gastrointestinal: See HPI Genitourinary: No symptoms reported Female Genitourinary: No symptoms reported Musculoskeletal: No symptoms reported Skin: No symptoms reported Neurological/Psychological: No symptoms reported Physical Exam - Vital signs Vitals: Temp Pulse Resp BP Pulse Ox 98.6 F 74 22 H 110/67 96 08/10/19 05:31 08/10/19 05:31 08/10/19 05:31 08/10/19 05:31 08/10/19 05:31 - Notes Notes: This is a 59-year-old female who appears older than her stated age, in no acute distress. Vital signs reviewed, please refer to chart. Head is normocephalic, atraumatic. Pupils equal round, reactive to light. Neck is supple without meningismus. Heart is regular rate and rhythm. Lungs are clear to auscultation bilaterally. Abdomen is distended with ascites, positive fluid wave, but still soft, normoactive bowel sounds throughout. Globally tender without rebound or guarding extremities without cyanosis, clubbing. Posterior calves are nontender. Peripheral pulses are equal. Skin is warm and dry. Patient is awake, alert, neurological exam is nonfocal. Course - Re-evaluation Re-evalutation: 08/10/19 09:56 Patient presents to the emergency department for evaluation. She had laboratory investigations as ordered. She was given morphine. Patient has no significant acute laboratory abnormalities, with a few exceptions. Her ammonia level is mildly elevated, but she is not encephalopathic. She had been on lactulose in the past. I strongly urged patient, as well as and son, to make sure that this is followed. They voiced understanding. Her bilirubin numbers were elevated, although not acutely so. Her lipase is moderately elevated, but certainly not to a level to where I was concerned about pancreatitis. At this time, I do not see a need for an urgent therapeutic paracentesis. She is oxygenating well. She is not in any significant distress. We discussed at length the need for paracentesis, and the possibility of scheduling these as an outpatient regularly. I encouraged him to discuss this with primary care, and they agreed to do so. At this point, awaiting contact from the nursing hide house supervisor in regards to outpatient paracentesis orders. 08/10/19 10:38 Patient is feeling improved. Morphine was helpful, serial abdominal exams are nonsurgical. Will have patient call the hospital, specifically ultrasound, tomorrow morning to facilitate ultrasound-guided paracentesis by radiology. I will send her home with a small amount of pain medication. She understands if her breathing worsens, her pain worsens, or she develops any new or concerning symptoms, she needs return immediately to the emergency department for reevaluation. - Vital Signs Vital signs: Temp Pulse Resp BP Pulse Ox 98.6 F 74 22 H 110/67 96 08/10/19 05:31 08/10/19 05:31 08/10/19 05:31 08/10/19 05:31 08/10/19 05:31 - Laboratory Result Diagrams: 08/10/19 07:28 08/10/19 07:28 Laboratory results interpreted by me: 08/10/19 08/10/19 08/10/19 07:28 07:28 07:28 RBC 2.86 L Hgb 9.0 L Hct 26.4 L Glucose 253 H Total Bilirubin 1.5 H Direct Bilirubin 1.0 H AST 57 H Alkaline Phosphatase 212 H Ammonia 37.3 H Albumin 3.0 L Lipase 309.7 H Urine Urobilinogen 08/10/19 07:35 RBC Hgb Hct Glucose Total Bilirubin Direct Bilirubin AST Alkaline Phosphatase Ammonia Albumin Lipase Urine Urobilinogen 4.0 H Discharge - Discharge Clinical Impression: Upper abdominal pain, Ascites due to alcoholic cirrhosis Condition: Stable Disposition: HOME, SELF-CARE Instructions: Abdominal Pain ([facility]) Additional Instructions: Lateral slow writing your work-up here was largely unremarkable. It is likely that the increased ascites is causing your abdominal pain. Please call Sundar at at 8 AM tomorrow morning. She will help facilitate outpatient paracentesis to drain your excess abdominal fluid. Your ammonia level is mildly elevated as well. Please follow-up with your primary care provider in regards to this, discuss whether or not you should be on regular lactulose. If you develop fever, increased pain, worsening breathing, or any other new or concerning symptoms, please return immediately to the emergency department for evaluation. Forms: Follow-Up Radiology Testing Referrals: DELMIS ISBELL MD [Primary Care Provider] - Follow up as needed
[2019-08-10] MEDS ORDERED: MORPHINE SULFATE 10 MG/ML INJ IV ONE (10:00)
[2019-08-10 11:03] VITALS: BP 107/68
== END 2019-08-10 10:55 | disposition home or self-care (01) ==
LOC: ER 05:16
DX: R10.10 Upper abdominal pain, unspecified (principal); K70.31 Alcoholic cirrhosis of liver with ascites; E78.00 Pure hypercholesterolemia, unspecified; I10 Essential (primary) hypertension; E11.9 Type 2 diabetes mellitus without complications; Z90.49 Acquired absence of other specified parts of digestive tract
CPT/HCPCS: 99284; 96374; 36415; 82140; 83690; 85025; 80053; 81001; S0119; J2270

== ENCOUNTER 2019-08-12 11:49 | Day surgery (SDC) | payer BC ==
[2019-08-12 13:14] LABS: INTERNATIONAL RATION (INR) 1.37
[2019-08-12 13:15] LABS: PARTIAL THROMBOPLASTIN TIME 38.2 SEC (23.5-35.8)
--- NOTE | 2019-08-12 16:05 | RADIOLOGY REPORT (SQ) ---
EXAM DESCRIPTION: U/S ABD PARACENTESIS COMPLETED DATE/TIME: 08/12/2019 3:12 pm REASON FOR STUDY: ASCITES R18.8 OTHER ASCITES COMPARISON: None. LIMITATIONS: None. PROCEDURE: Procedure, risks, benefit, and alternative explained to patient who then gave written con sent. The left lower abdominal wall marked using ultrasound guidance. A time-out was called for cor rect marking verification. Abdomen prepped and draped using sterile technique. Local anesthesia achi eved using 10 ml of 1% lidocaine injection. A 6fr Xaer-D-Ygqzeibi set was introduced into the perito dia cavity. Fluid was drained. The catheter was removed and entry site was covered with sterile ba ndage. No immediate complications noted. Images acquired during the procedure were stored on PACS. FINDINGS: ENTRY SITE: Left lower quadrant FLUID VOLUME: 2760 cc FLUID ANALYSIS: Straw-colored OTHER: Therapeutic only. IMPRESSION: SUCCESSFUL ULTRASOUND GUIDED PARACENTESIS. COMMENT: Patient medication list reviewed:Yes- Quality ID# [id number]:Eligible professional attests to docu menting in the medical record they obtained, updated, or reviewed the patient's current medications. TECHNICAL DOCUMENTATION: JOB ID: [id number] [employer]- All Rights Reserved Reading location - IP/workstation name: [email or web address]
[2019-08-12 18:06] VITALS: BP 121/64
== END 2019-08-12 15:40 | disposition home or self-care (01) ==
LOC: RAD 11:49
PROVIDERS: ATTEND Emergency Medicine
DX: K70.31 Alcoholic cirrhosis of liver with ascites (principal); Z79.4 Long term (current) use of insulin; Z79.899 Other long term (current) drug therapy; E78.00 Pure hypercholesterolemia, unspecified; I10 Essential (primary) hypertension; Z86.73 Personal history of transient ischemic attack (TIA), and cerebral infarction without residual deficits; E11.9 Type 2 diabetes mellitus without complications; Z88.8 Allergy status to other drugs, medicaments and biological substances; F17.210 Nicotine dependence, cigarettes, uncomplicated
CPT/HCPCS: 36415; 49083; 82947; 85610; 85730